=== PATIENT | male | born 1985 | race Two or more races ===

== ENCOUNTER 2020-08-06 14:01 | Outpatient (REF) | payer MEDICAID, SELFPAY ==
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
== END 2020-08-06 14:02 | disposition home or self-care (01) ==
LOC: HO.XRAY 14:01
PROVIDERS: PCP Internal Medicine Geriatric Medicine; Visit Provider Internal Medicine Geriatric Medicine
DX: M25.561 Pain in right knee (principal); M54.5 Low back pain
CPT/HCPCS: 72110; 73564

== ENCOUNTER 2021-09-17 21:10 | Emergency (ER) | payer OTHER, SELFPAY ==
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
[2021-09-17 21:27] VITALS: BP 110/72; BP 110/78; PULSE 72; PULSE 76; RESP 18; TEMP 36.7; O2SAT 98; BMI 23.8
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
[2021-09-18] MEDS: Cyclobenzaprine HCl 5 MG TABLET PO (00:39)
== END 2021-09-18 00:44 | disposition home or self-care (01) ==
PROVIDERS: Emergency Provider Internal Medicine; PCP Internal Medicine Geriatric Medicine
DX: M54.2 Cervicalgia (principal); M25.562 Pain in left knee; M25.522 Pain in left elbow; S20.212A Contusion of left front wall of thorax, initial encounter; V43.52XA Car driver injured in collision with other type car in traffic accident, initial encounter; R20.2 Paresthesia of skin; Y93.89 Activity, other specified; Y92.414 Local residential or business street as the place of occurrence of the external cause; Y99.9 Unspecified external cause status
CPT/HCPCS: 70450; 71101; 72125; 73502; 73560; 99283; 99284

== ENCOUNTER 2022-03-15 17:26 | Emergency (ER) | payer MEDICAID, SELFPAY ==
[2022-03-15 17:32] VITALS: BP 121/60; PULSE 82; RESP 18; TEMP 37; O2SAT 81; BMI 26.2
--- OUTSIDE RECORDS SUMMARY | 2022-03-15 18:30 | XMS_ITS | Continuity of Care Document ---
:1985 Author Organization [facility] Address [address] [place] [id number]- Care Team Providers Name Role Phone Name Romulo GRIGGS Primary Care Physician Encounter [facility] [place] Date(s): 05/09/20 - 05/09/[address] [address]- Discharge Disposition: A-D/C Home Attending Physician: Jered GRIGGS, Trudy Weiss Admitting Physician: Jered GRIGGS, Trudy Weiss Referring Physician: Not on Staff, Referring MD Allergies, Adverse Reactions, Alerts No Known Medication Allergies Medications albuterol 90 mcg/inh inhalation powder 1 puffs, Inhalation, Every 4 hours, PRN as needed, # 1 each, 3 Refills, Maintenance, 05/09/20 15:58:00 EST, Powder, [id number], Partial fill upon patient request if the prescription is for a schedule II opioid drug., 1 puffs Inhalation Every 4... Start Date: 05/09/20 Status: Ordered Vital Signs Most recent to oldest [Reference Range]: 1 2 Oxygen Saturation [94-100 %] 97 % 100 % (05/09/20 2:17 PM) (05/09/20 1:42 PM) Pulse Rate [55-90 bpm] 94 bpm 98 bpm *H* *H* (05/09/20 2:17 PM) (05/09/20 1:42 PM) Blood Pressure [90-138/55-84 mm Hg] 128/98 mm Hg (05/09/20 2:17 PM) Respiratory Rate [16-30 br/min] 19 br/min (05/09/20 2:17 PM) Temperature [96.8-100.4 DegF] 98.3 DegF (05/09/20 2:17 PM) Mode of Delivery (Oxygen) Room air (05/09/20 2:17 PM) Blood pressure sites Arm, right (05/09/20 2:17 PM) Temperature Route Oral (05/09/20 2:17 PM)
--- OUTSIDE RECORDS SUMMARY | 2022-03-15 18:30 | XMS_ITS | Continuity of Care Document ---
:1985 Author Organization [facility] Address [address] [place] [address]- Care Team Providers Name Role Phone Name Romulo GRIGGS Primary Care Physician Encounter [facility] [place] [id number] Date(s): 05/11/20 - 05/13/[address] [id number] Discharge Disposition: A-D/C Home Attending Physician: China Gandhi MD Admitting Physician: Jose Luis Layne MD Referring Physician: Not on Staff, Referring MD [...] Inhalation Every 4... Start Date: 05/09/20 Status: Orderednaproxen 500 mg oral tablet 1 tablet = 500 mg, By Mouth, 2 times a day, # 60 tablet, 0 Refills, Acute 06/10/20 11:20:00 EST, 05/13/20 11:20:00 EST, Tablet, [id number], Partial fill upon patient request if the prescriptionis for a schedule II opioid drug., 170, cm, 05/13... Start Date: 05/13/20 Stop Date: 06/10/20 Status: OrderedNicotine 2 mg gum = 2 mg, Chew, Every hour, PRN Other, Nicotine Cravings, # 30 each, 1 Refills, Acute 06/10/20 11:20:00 EST, 05/13/20 11:20:00 EST, Gum, [id number], Partial fill upon patient request if the prescription is for a schedule II opioid drug., 170, cm... Start Date: 05/13/20 Stop Date: 06/10/20 Status: Ordered Results Radiology Reports Exam Date Time Procedure Performing Provider Status 05/12/20 3:05 AM Chest 2 Views Frontal and Lat Aydee AburtoKanwal Bliss [facility] (Verified) Notes:(Chest 2 Views Frontal and Lat) Reason For Exam: Chest Pain;Other:RESULT: Chest 2 Views Frontal and Lat Chest 2 Views Frontal and Lat Hx of Present Illness: pt c o 2 days of intermittent chest pain that is sharp and reproducible as well as shortness of breath that is worse out in the cold. pt states it feels similar to a previous occurence of bronchitis.; Reason: Other:; Chest Pain; Clinical Question(s): Other: COMPARISON: None. FINDINGS: LINES AND TUBES: None. LUNGS AND PLEURA: Clear lungs. Normal pulmonary vascularity. No pleural effusion. No pneumothorax. HEART, MEDIASTINUM AND JOANN: Heart is normal in size. Normal upper mediastinal and hilar contour. BONES AND SOFT TISSUES: No acute abnormality. IMPRESSION: Negative. WSN: [id number] Ordering Physician: Julia Augustin Dictated By: Justus Price MD Dictated Date/Time: 05/12/20 9:00 am Reviewed By: Justus Price MD Signed By: Justus Price MD Signed Date/Time: 05/12/20 9:00 am Transcribed By: MEE Transcribed Date/Time: 05/12/20 8:59 am Vital Signs Most recent to oldest [Reference 1 2 3 Range]: Height 170 cm 170 cm (05/13/20 7:50 AM) (05/12/20 4:19 PM) Weight 69.5 kg (05/12/20 4:19 PM) Oxygen Saturation [94-100 %] 95 % 100 % 99 % (05/13/20 7:50 AM) (05/13/20 4:00 AM) (05/12/20 11:00 PM) Pulse Rate [55-90 bpm] 70 bpm 100 bpm 53 bpm (05/13/20 7:50 AM) *H* *L* (05/13/20 4:00 AM) (05/12/20 11:00 P M) Body Mass Index [18.5-24.99] 24.05 (05/12/20 4:19 PM) Blood Pressure [90-138/55-84 mm 109/59 mm Hg 101/47 mm Hg 114/68 mm Hg Hg] (05/13/20 7:50 AM) (05/13/20 4:00 AM) (05/12/20 11:00 PM) Respiratory Rate [16-30 br/min] 18 br/min 18 br/min 18 br/min (05/13/20 9:30 AM) (05/13/20 7:50 AM) (05/13/20 4:00 A M) Temperature [96.8-100.4 DegF] 97.5 DegF 97.9 DegF 97 .7 DegF (05/13/20 7:50 AM) (05/13/20 4:00 AM) (05/12/20 11:00 PM) Mode of Delivery (Oxygen) Room air Room air Room a ir (05/13/20 7:50 AM) (05/13/20 4:00 AM) (05/12/20 11:00 PM) Blood pressure sites Arm, left Arm, left Arm, left (05/13/20 7:50 AM) (05/13/20 4:00 AM) (05/12/20 11:00 PM) Temperature Route Oral Oral Oral (05/13/20 7:50 AM) (05/13/20 4:00 AM) (05/12/20 11:00 PM) Dry Weight 69.5 kg (05/12/20 4:19 PM)
--- OUTSIDE RECORDS SUMMARY | 2022-03-15 18:30 | XMS_ITS | Continuity of Care Document ---
:1985 Author Organization [facility] Address [address] [place] [id number]- Care Team Providers Name Role Phone Name Romulo GRIGGS Primary Care Physician [place] [facility] [place] - 08/19/[address] [address]- Discharge Disposition: A-D/C Home Attending Physician: Luli Anand MD Admitting Physician: Luli Anand MD Referring Physician: Not on Staff, Referring [...] Every 4... Start Date: 05/09/20 Status: Ordered Problem List Condition Effective Dates Status Health Status Informant Tobacco abuse(Confirmed) Active Results Radiology Reports Exam Date Time Procedure Performing Provider Status 08/19/20 8:41 PM Lumbar Spine 2 or 3 Views Kevin Herrera (Verified) Notes:(Lumbar Spine 2 or 3 Views) Reason For Exam: PainRESULT: Lumbar Spine 2 or 3 Views PROCEDURE: Lumbar Spine 2 or 3 Views CLINICAL INDICATION: 35 years old Male with Hx of Present Illness: lower back pain; Reason: Pain; Clinical Question(s): Fracture Dislocation. TECHNIQUE: AP, lateral and lateral spot views of the lumbar spine are obtained. COMPARISON: None. FINDINGS: Bones: Straightening of normal lumbar lordosis noted. Five lumbar type [id number] vertebrae arenoted. No evidence of fracture or dislocation. No evidence of spondylolisthesis. Minimal degenerative endplate changes anteriorly at L4-L5 and L5-S1. Soft Tissues: Moderate volume of fecal material in the colon. Left-sided pelvic fluids. IMPRESSION: 1. No evidence of acute bony injuries. 2. Straightening of normal lordosis which could be due to muscle spasm. 3. Moderate volume of fecal material in the colon which in the correct clinical setting could be evidence of constipation. Thank you for allowing me to participate in the care of this patient. WSN: [id number] Ordering Physician: Jody Li Dictated By: Madhu James MD Dictated Date/Time: 08/19/20 8:44 pm Reviewed By: Madhu James MD Signed By: Madhu James MD Signed Date/Time: 08/19/20 8:44 pm Transcribed By: MEE Transcribed Date/Time: 08/19/20 8:43 pm Vital Signs Most recent to oldest 1 2 3 [Reference Range]: Weight 69.8 kg 69.8 kg (08/19/20 9:33 PM) (08/19/20 12:44 PM) Oxygen Saturation [94-100 100 % 70 % 100 % %] (08/19/20 6:03 PM) *L* (08/19/20 12:42 PM) (08/19/20 12:44 PM) Pulse Rate [55-90 bpm] 62 bpm 69 bpm 92 bpm (08/19/20 6:03 PM) (08/19/20 12:44 PM) *H* (08/19/20 12:42 P M) Blood Pressure 115/69 mm Hg 137/65 mm Hg [90-138/55-84 mm Hg] (08/19/20 6:03 PM) (08/19/20 12:44 PM) Respiratory Rate [16-30 16 br/min 16 br/min br/min] (08/19/20 6:03 PM) (08/19/20 12:44 PM) Temperature [96.8-100.4 98.5 DegF 98.1 DegF DegF] (08/19/20 6:03 PM) (08/19/20 12:44 PM) Mode of Delivery (Oxygen) Room air 99 Room a ir (08/19/20 6:03 PM) (08/19/20 12:44 PM) (08/19/20 12 :42 PM) Blood pressure sites Arm, left Arm, left (08/19/20 6:03 PM) (08/19/20 12:44 PM) Temperature Route Oral Oral (08/19/20 6:03 PM) (08/19/20 12:44 PM) Dry Weight 69.8 kg 69.8 kg (08/19/20 9:33 PM) (08/19/20 12:44 PM) Weight Obtained Via Patient/family stated (08/19/20 12:44 PM) Dry Weight Obtained Via Patient/family stated (08/19/20 12:44 PM)
--- OUTSIDE RECORDS SUMMARY | 2022-03-15 18:30 | XMS_ITS | Continuity of Care Document ---
:1985 Author Organization [facility] Address [address] [place] [id number]- Care Team Providers Name Role Phone Name Romulo GRIGGS Primary Care Physician Encounter [facility] [place](s): 06/06/20 - 07/06/20 [facility] [address] [place] [id number] Attending Physician: Lambert Winston Admitting Physician: Lambert Winston Referring Physician: Admtr, Lambert Allergies, Adverse Reactions, Alerts No Known Medication [...]
--- OUTSIDE RECORDS SUMMARY | 2022-03-15 18:30 | XMS_ITS | Continuity of Care Document ---
:1985 Author Organization [facility] Address [address] [place] [id number]- Care Team Providers Name Role Phone Name Romulo GRIGGS Primary Care Physician Encounter [facility] Date(s): 07/09/20 - 08/08/20 [facility] [address] [place] [id number] Allergies, Adverse Reactions, Alerts No Known Medication [...]
--- OUTSIDE RECORDS SUMMARY | 2022-03-15 18:30 | XMS_ITS | Continuity of Care Document ---
:1985 Author Organization [facility] Address [address] [place] [id number]- Care Team Providers Name Role Phone Name Romulo GRIGGS Primary Care Physician [place] [facility] [place]s): 06/05/20 - 07/05/20 [facility] [address] [place] [id number] Allergies, Adverse Reactions, Alerts No Known Medication [...]
--- OUTSIDE RECORDS SUMMARY | 2022-03-15 18:30 | XMS_ITS | Continuity of Care Document ---
:1985 Author Organization [facility] Address [address] [place] [address]- Care Team Providers Name Role Phone Name Romulo GRIGGS Primary Care Physician [place] [facility] [place]29[place] - 11/29/[address] [address]- [facility] Discharge Disposition: A-D/C Home Attending Physician: Micaela Fischer MD Admitting Physician: Wagner Holliday MD, Micaela Referring Physician: Not on Staff, Referring MD Allergies, Adverse Reactions, Alerts No Known Medication Allergies Medications doxycycline hyclate 100 mg oral capsule 1 capsule = 100 mg, By Mouth, 2 times a day, for 10 days, # 20 capsule, 0 Refills, Acute 12/09/19 17:05:00 EDT, 11/29/19 17:05:00 EDT, Capsule Start Date: 11/29/19 Stop Date: 12/09/19 Status: Orderedibuprofen 600 mg oral tablet 600 mg, 1, tablet, By Mouth, 4 times a day, PRN, for 5 days, # 20 tablet, Refills 0, Tot. Refills 0,Acute 12/04/19 17:05:00 EDT, for pain, 11/29/19 17:05:00 EDT, Print Requisition Start Date: 11/29/19 Stop Date: 12/04/19 Status: Ordered Vital Signs Most recent to oldest 1 2 3 [Reference Range]: Oxygen Saturation [94-100 %] 100 % 100 % (11/29/19 4:35 PM) (11/29/19 11:36 AM) Pulse Rate [55-90 bpm] 86 bpm 99 bpm (11/29/19 4:35 PM) *H* (11/29/19 11:36 AM) Blood Pressure [90-138/55-84 112/78 mm Hg 125/69 mm Hg mm Hg] (11/29/19 4:35 PM) (11/29/19 11:36 AM) Respiratory Rate [16-30 18 br/min 16 br/min 18 br/mi n br/min] (11/29/19 4:35 PM) (11/29/19 2:47 PM) (11/29/19 11: 36 AM) Temperature [96.8-100.4 98.6 DegF DegF] (11/29/19 11:36 AM) Mode of Delivery (Oxygen) Room air Room air (11/29/19 4:35 PM) (11/29/19 11:36 AM) Temperature Route Oral (11/29/19 11:36 AM)
--- OUTSIDE RECORDS SUMMARY | 2022-03-15 18:30 | XMS_ITS | Continuity of Care Document ---
:1985 Author Organization [facility] Address [address] [place] [id number]- Care Team Providers Name Role Phone Name Romulo GRIGGS Primary Care Physician Encounter [facility] Date(s): 07/09/20 - 08/08/20 [facility] [address] [place] [id number] Allergies, Adverse Reactions, Alerts No Known [...]
--- NOTE | 2022-03-15 18:33 | ED.GENADULT ---
HPI - General Adult General Stated complaint: tooth pain Source: patient, family, RN notes reviewed and old records reviewed Mode of arrival: ambulatory Limitations: no limitations History of Present Illness HPI narrative: 36-year-old male is here today for evaluation of his tooth. Patient was eating about 40 minutes ago and felt like his filling came out. Patient's girlfriend took a picture of it small amalgam filling came out of molar 2. There is no swelling. Patient has some discomfort. Patient admits to multiple dental caries. Has not seen a dentist for some time. He reports that the rest of the tooth is intact. Onset (ago): minute(s) (40 minutes) Location: mouth Related Data Previous Rx's Medication Instructions Recorded cyclobenzaprine 5 mg tablet 5 mg PO Q8H PRN pain (scale score 09/18/21 7-10) 5 days #14 tabs lidocaine 5 % topical patch 1 patch topical DAILY PRN pain #30 09/18/21 (Lidoderm) ea naproxen 500 mg tablet 500 mg PO BID PRN pain 10 days #20 09/18/21 tabs ibuprofen 600 mg tablet 600 mg PO Q8H PRN pain #20 tabs 03/15/22 Allergies Allergy/AdvReac Type Severity Reaction Status Date / Time acetaminophen [From TYLENOL] Allergy Intermediate LIVER Verified 09/17/21 21:27 SWELLING Review of Systems Review of Systems: Constitutional : No Weight loss, No Fever, No Chills, No Night Sweats, No Fatigue, No Malaise ENT/Mouth : No Hearing loss, No Ear Pain, No Nasal Congestion, No Sinus Pain, No Hoarseness, No sore throat, No Rhinorrhea, No Swallowing Difficulty, toothache Eyes: No Eye Pain, No Swelling, No Redness, No Foreign Body, No Discharge, No Vision Changes Respiratory : No Cough, No Sputum, No Wheezing, No Smoke Exposure, No Dyspnea Musculoskeletal : No joint pain, No Myalgias, No Joint Swelling Skin : No Skin Lesions, No rash Neuro : No Weakness, No Numbness, No Paresthesias, No Loss of Consciousness, No Dizziness, No Headache Yes all other systems are reviewed and are negative PMFSH Social History Social History Advance Directives: No Advance Directives Information Provided: No Physical Exam ED Vital Signs: Vital Signs - 24 hr 03/15/22 17:32 Temperature 98.6 F Pulse Rate 82 Respiratory Rate 18 Blood Pressure 121/60 Pulse Oximetry 81 L Oxygen Delivery Method Room Air BMI result Body Mass Index 26.2 Const General: cooperative, healthy appearing, comfortable, well developed, alert and awake Nutritional Appearance: average body habitus and well nourished Orientation/consciousness: patient oriented x3 HENMT Head: Yes normal to inspection, Yes normocephalic and Yes atraumatic Ears: hearing grossly normal bilaterally, external ears normal and TM's normal bilaterally General nose exam: Normal external nose present Face and sinus: Yes normal facial exam and Yes sinuses nontender Mouth: Normal oral and palatal mucosa present and tongue normal Teeth and gingiva: caries and poor dentition Teeth image: 1. lost filling Throat: Yes posterior oropharynx normal, Yes tonsils normal and Yes uvula midline Neck Neck: Yes normal visual inspection, Yes full ROM, Yes no lymphadenopathy and Yes trachea midline Resp Effort & Inspection: normal respiratory effort Auscultation: clear to auscultation bilaterally Skin General skin exam: no rashes or lesions noted, elasticity normal and turgor normal Neuro General: patient oriented x3 Psych Appearance: grossly normal and well kempt Mental Status: mental status grossly normal Speech and movement: Normal speech and movement present Course Course Course Narrative: 36-year-old male is here today for evaluation of his tooth. Patient was eating about 40 minutes ago and felt like his filling came out. Patient's girlfriend took a picture of it small piece of amalgam filling came out of molar 2. There is no swelling. Patient has some discomfort. Patient admits to multiple dental caries. Has not seen a dentist for some time. He reports that the rest of the tooth is intact. There is no swelling or redness. Gums pink otherwise. Patient will be sent to follow-up with his dentist. We will be giving script for Tylenol and ibuprofen. Patient was encouraged to rinse his mouth with warm water and salt. Discharge Plan Discharge Clinical Impression: Toothache, Dental caries Patient Disposition: Home, Self-Care Instructions: Toothache (ED) Additional Instructions: You were seen here today for dental pain. Your filling came out, make sure you follow-up with dentist at [facility] [phone]. You will be given script for ibuprofen and Tylenol. Make sure that you will rinse your mouth with warm water and salt. Prescriptions: New ibuprofen 600 mg tablet 600 mg PO Q8H PRN (Reason: pain) Qty: 20 0RF No Action lidocaine [Lidoderm] 5 % adhesive patch,medicated 1 patch topical DAILY MDD remove after 12 hours PRN (Reason: pain) Qty: 30 0RF Rx Instructions: leave on most painful area for up to 12 hrs naproxen 500 mg tablet 500 mg PO BID PRN (Reason: pain) 10 Days Qty: 20 0RF cyclobenzaprine 5 mg tablet 5 mg PO Q8H PRN (Reason: pain (scale score 7-10)) 5 Days Qty: 14 0RF Interventions: ED Discharge Assessment Last Done: 03/15/22 18:57 Discharge Date/Time: 03/15/22 18:58
== END 2022-03-15 18:58 | disposition home or self-care (01) ==
PROVIDERS: Emergency Provider Emergency Medicine Emergency Medical Services; PCP Internal Medicine Geriatric Medicine
DX: K08.89 Other specified disorders of teeth and supporting structures (principal); K02.9 Dental caries, unspecified
CPT/HCPCS: 99282; 99283

== ENCOUNTER 2022-09-01 01:11 | Emergency (ER) | payer MEDICAID, SELFPAY ==
--- NOTE | ~2022-09-01 | XR_ITS ---
EXAMINATION: XR ABDOMEN KUB CLINICAL INDICATION: Mid abdominal pain COMPARISON: None available. TECHNIQUE: AP view of the abdomen. FINDINGS: The bowel gas pattern is normal with no evidence of ileus or obstruction. No unusual soft tissue calcifications are noted. The bones are unremarkable. XR/XR KUB IMPRESSION: Unremarkable examination.
--- NOTE | ~2022-09-01 | CT_ITS ---
EXAMINATION: CT ABDOMEN AND PELVIS WITHOUT CONTRAST CLINICAL INFORMATION: Right lower quadrant pain COMPARISON: None available. TECHNIQUE: Multidetector volumetric imaging was performed from the superior aspect of the liver through the pubic symphysis. Sagittal and coronal reformatted images were obtained on the technologist's workstation. This CT examination was performed using dose optimization techniques as appropriate, variously including the following: *Automated exposure control *Adjustment of mA and/or kV according to patient size (this includes techniques or standardized protocols for targeted exams where dose is matched to indication/reason for exam; i.e. extremities or head) *Use of iterative reconstruction technique DLP: 434 mGy-cm FINDINGS: LUNG BASES: The visualized lung bases are unremarkable. LIVER, GALLBLADDER, AND BILIARY TREE: The liver is normal in size, shape, and attenuation. No focal hepatic lesion or biliary ductal dilatation is present. The gallbladder is unremarkable with no evidence of radiopaque gallstones, gallbladder wall thickening, or obvious pericholecystic inflammatory changes. PANCREAS: Unremarkable. SPLEEN: Unremarkable. ADRENAL GLANDS: Unremarkable. KIDNEYS AND URETERS: The kidneys are normal in size, shape, and attenuation. No hydronephrosis, hydroureter, or calculi seen. No perinephric stranding. BLADDER: Unremarkable. GASTROINTESTINAL TRACT: The small and large bowel are unremarkable. The appendix is not seen, however there are no inflammatory changes about the cecum to suggest appendicitis.. ABDOMINAL WALL: No significant hernia is appreciated. LYMPH NODES: Normal. VASCULAR: Unremarkable. PELVIC VISCERA: Unremarkable. OSSEOUS STRUCTURES: Unremarkable. CT/CT abdomen pelvis wo IV con IMPRESSION: No acute findings within the abdomen or pelvis to explain the patient's symptomatology.
[2022-09-01 02:04] VITALS: BP 131/76; PULSE 58; RESP 18; TEMP 36.6; O2SAT 98; BMI 24.5
[2022-09-01 03:15] VITALS: BP 99/58; PULSE 45; RESP 14; TEMP 36.4; O2SAT 98
[2022-09-01 03:20] LABS: Basophils Absolute Auto 0.1 X10*3/uL (0.0-0.2); Basophils Percent Auto 0.8 % (0-2); Eosinophils Absolute Auto 0.2 X10*3/uL (0.0-0.4); Eosinophils Percent Auto 2.4 % (0-4); Hematocrit 44.5 % (42.0-52.0); Hemoglobin 15.2 g/dl (14.0-18.0); Imm Gran Abs Auto 0.02 X10*3/uL (0.00-0.03); Imm Gran Pct Auto 0.2 % (0.0-0.4); Lymphocytes Absolute Auto 3.4 X10*3/uL (1.2-4.9); MANUAL DIFF FLAG NO; Mean Corpuscular HGB Conc 34.2 g/dl (31.0-36.0); Mean Corpuscular Hemoglobin 29.7 pg (27.0-33.0); Mean Corpuscular Volume 86.9 fL (80.0-98.0); Mean Platelet Volume 9.9 fL (9.4-12.4); Monocytes Absolute Auto 0.8 X10*3/uL (0.1-1.2); Monocytes Percent Auto 9.8 % (2-11); Neutrophils Absolute Auto 3.8 x10*3/uL (2.0-8.3); Neutrophils Percent Auto 45.8 % (45-73); Platelet Count 248 X10*3/uL (160-400); Red Blood Count 5.12 X10*6/uL (4.60-5.80); White Blood Count 8.4 X10*3/uL (4.8-10.8)
[2022-09-01 03:25] LABS: INTERNATIONAL NORM RATIO 1.1 (0.9-1.1); Prothrombin Time 12.4 SEC (10.0-13.1)
--- NOTE | 2022-09-01 03:25 | ED.GENADULT ---
[facility] - General Adult General Chief complaint: Weakness Stated complaint: mouth & stomach pain, dry mouth Time Seen by Provider: 09/01/22 02:39 Source: patient Mode of arrival: ambulatory History of Present Illness HPI narrative: This is a 37-year-old male who presents after spending 2 weeks in [place] and states that they were go carting and that he got mild in his mouth and since that time he feels unwell but denies any fevers or chills, but states he has had a decrease in appetite and describes periumbilical discomfort but denies any nausea, vomiting, diarrhea. Related Data Previous Rx's Medication Instructions Recorded cyclobenzaprine 5 mg tablet 5 mg PO Q8H PRN pain (scale score 09/18/21 7-10) 5 days #14 tabs lidocaine 5 % topical patch 1 patch topical DAILY PRN pain #30 09/18/21 (Lidoderm) ea naproxen 500 mg tablet 500 mg PO BID PRN pain 10 days #20 09/18/21 tabs ibuprofen 600 mg tablet 600 mg PO Q8H PRN pain #20 tabs 03/15/22 Allergies Allergy/AdvReac Type Severity Reaction Status Date / Time acetaminophen [From TYLENOL] Allergy Intermediate LIVER Verified 09/01/22 02:04 SWELLING Review of Systems Review of Systems: Pertinent positives and negatives as stated in HPI [facility] Past Medical History Source: nursing notes reviewed Social History Social History Advance Directives: No Advance Directives Information Provided: No Physical Exam ED Vital Signs: Vital Signs - 24 hr 09/01/22 02:04 09/01/22 03:15 Temperature 97.8 F 97.6 F Pulse Rate 58 45 L Respiratory Rate 18 14 Blood Pressure 131/76 99/58 L Pulse Oximetry 98 98 Oxygen Delivery Method Room Air Room Air BMI result Body Mass Index 24.5 VITAL SIGNS: Reviewed. GENERAL: Well developed, well nourished, in no acute distress. HEAD: Normocephalic/atraumatic EYES: PERRLA, EOMI EARS: Ext canals without abnormality NOSE: Nares patent bilateral OROPHARYNX: no oral lesions noted, posterior pharynx clear NECK: Supple, no adenopathy LUNGS: Normal breath sounds. No adventitious sounds or accessory muscle use. SpO2<98> CARDIOVASCULAR: Regular rate and rhythm without noted murmurs ABDOMEN: Soft, mild periumbilical pain, non-distended with bowel sounds. MUSCULOSKELETAL: No tenderness, deformities, or effusions noted on gross inspection. EXTREMITIES: No cyanosis, clubbing or edema. SKIN: Inspection of the skin reveals no rashes NEUROLOGIC: Alert and oriented x 4. Strength and sensation to light touch were grossly intact x 4. Medications Administered Discontinued Medications Generic Name Dose Route Start Last Admin Trade Name Freq PRN Reason Stop Dose Admin Ketorolac Tromethamine 15 mg 09/01/22 05:25 09/01/22 05:41 Ketorolac Tromethamine 15 Mg/Ml Vial IM 09/01/22 05:26 15 mg ONCE ONE Administration Medical Decision Making Medical Decision Making [facility] Narrative: 37-year-old male with history and clinical presentation suggestive of a mild gastroenteritis, patient otherwise appears well. Review of all investigations otherwise negative for acute findings. Patient will be treated empirically for mild gastroenteritis and discharged home in stable condition. Differential Diagnosis Please see the discussion above Lab Data Please see the discussion above 09/01/22 03:11 09/01/22 03:11 Labs: Lab Results 09/01/22 09/01/22 09/01/22 Range/Units 03:11 03:11 03:11 WBC 8.4 (4.8-10.8) X10*3/uL RBC 5.12 (4.60-5.80) X10*6/uL Hgb 15.2 (14.0-18.0) g/dl Hct 44.5 (42.0-52.0) % MCV 86.9 (80.0-98.0) fL MCH 29.7 (27.0-33.0) pg MCHC 34.2 (31.0-36.0) g/dl RDW 12.0 (11.0-16.0) % Plt Count 248 (160-400) X10*3/uL MPV 9.9 (9.4-12.4) fL Immature Gran % (Auto) 0.2 (0.0-0.4) % Neut % (Auto) 45.8 (45-73) % Lymph % (Auto) 41.0 H (20-40) % [place] % (Auto) 9.8 (2-11) % Eos % (Auto) 2.4 (0-4) % Baso % (Auto) 0.8 (0-2) % Lymph # (Auto) 3.4 (1.2-4.9) X10*3/uL [place] # (Auto) 0.8 (0.1-1.2) X10*3/uL Eos # (Auto) 0.2 (0.0-0.4) X10*3/uL Baso # (Auto) 0.1 (0.0-0.2) X10*3/uL Abs Immat Gran (auto) 0.02 (0.00-0.03) X10*3/uL Absolute Neuts (auto) 3.8 (2.0-8.3) x10*3/uL Absolute Nucleated RBC 0.000 (0.0-0.012) X10*3/uL Nucleated RBC % (auto) 0.0 (0.0-0.2) /100WBC PT 12.4 (10.0-13.1) SEC INR 1.1 (0.9-1.1) Sodium 141 (135-145) mmol/L Potassium 3.6 (3.3-5.1) mmol/L Chloride 108 (96-108) mmol/L Carbon Dioxide 24 (22-29) mmol/L Anion Gap 13 (12-20) BUN 18 H (9-16) mg/dL Creatinine 1.01 (0.5-1.4) mg/dL Estim Creat Clear Calc 95.4 Estimated GFR > 60 Random Glucose 96 (60-115) mg/dL Calcium 9.6 (8.4-10.2) mg/dL Total Bilirubin 1.1 H (0.0-1.0) mg/dL AST 18 (5-37) U/L ALT 10 (0-40) U/L Alkaline Phosphatase 99 (39-117) U/L Total Protein 7.2 (6.5-8.0) g/dL Albumin 4.5 (3.5-5.0) g/dL Radiology Impression Radiologist Impression: My interpretation is in agreement with radiology's impression Discharge Plan Discharge Clinical Impression: Gastroenteritis Patient Disposition: Home, Self-Care Instructions: Gastroenteritis (ED) Additional Instructions: 1. Recommend [id number] Tylenol/ibuprofen as needed for pain control. Continue with a bland diet which means no spicy or greasy foods the next 5-7 days. Gradually increase your diet from there. 2. Follow-up with your primary care provider on Thursday morning. Return to the ER for any worsening symptoms. Prescriptions: No Action lidocaine [Lidoderm] 5 % adhesive patch,medicated 1 patch topical DAILY MDD remove after 12 hours PRN (Reason: pain) Qty: 30 0RF Rx Instructions: leave on most painful area for up to 12 hrs naproxen 500 mg tablet 500 mg PO BID PRN (Reason: pain) 10 Days Qty: 20 0RF cyclobenzaprine 5 mg tablet 5 mg PO Q8H PRN (Reason: pain (scale score 7-10)) 5 Days Qty: 14 0RF ibuprofen 600 mg tablet 600 mg PO Q8H PRN (Reason: pain) Qty: 20 0RF Referrals: Name,MD Romulo [Primary Care Provider] -
[2022-09-01 03:39] LABS: Alanine Aminotransferase 10 U/L (0-40); Albumin Level 4.5 g/dL (3.5-5.0); Alkaline Phosphatase 99 U/L (39-117); Anion Gap 13 (12-20); Aspartate Amino Transferase 18 U/L (5-37); Bilirubin Total 1.1 mg/dL (0.0-1.0); Blood Urea Nitrogen 18 mg/dL (9-16); Calcium 9.6 mg/dL (8.4-10.2); Carbon Dioxide 24 mmol/L (22-29); Chloride 108 mmol/L (96-108); Creatinine Clr Calc Pharmacy 95.4; Estimated Glomerular Filt Rate > 60; Glucose Random 96 mg/dL (60-115); Potassium 3.6 mmol/L (3.3-5.1); Sodium 141 mmol/L (135-145); Total Protein 7.2 g/dL (6.5-8.0)
[2022-09-01] MEDS: Ketorolac Tromethamine 15 MG/ML VIAL IM (05:41)
== END 2022-09-01 06:39 | disposition home or self-care (01) ==
PROVIDERS: Emergency Provider Student in an Organized Health Care Education/Training Program; PCP Internal Medicine Geriatric Medicine
DX: K52.9 Noninfective gastroenteritis and colitis, unspecified (principal); R10.2 Pelvic and perineal pain; Z79.899 Other long term (current) drug therapy
CPT/HCPCS: 36415; 74018; 74176; 80053; 85025; 85610; 96372; 99284; J1885

== ENCOUNTER 2022-12-08 12:58 | Emergency (ER) | payer MEDICAID, SELFPAY ==
--- NOTE | 2022-12-08 13:04 | ED.GENADULT ---
HPI - General Adult General Chief complaint: Urogenital-Male Stated complaint: will explain to doctor Time Seen by Provider: 12/08/22 15:05 Source: patient and RN notes reviewed Mode of arrival: ambulatory Limitations: no limitations History of Present Illness HPI narrative: This is a 37-year-old male presenting to the emergency department with complaints of penile itching after intercourse today. Patient states that his just started vitamins and has had increased vaginal itching. Patient reports that the also has had vaginal dryness over this past week. Patient reports that while he was having intercourse, his was complaining of some pain and vaginal dryness. After penetration, he did have some itching to the tip of his penis. Patient denies any hematuria, urinary urgency or frequency. Denies any penile discharge. Denies any penile lesions. No other complaints or concerns at this time. MD complaint: Penile itching Onset (ago): day(s) Quality: burning Pain Consistency: constant Relieving factors: none Exacerbating factors: none Associated symptoms: denies other symptoms Treatments prior to arrival: none Related Data Previous Rx's Medication Instructions Recorded cyclobenzaprine 5 mg tablet 5 mg PO Q8H PRN pain (scale score 09/18/21 7-10) 5 days #14 tabs lidocaine 5 % topical patch 1 patch topical DAILY PRN pain #30 09/18/21 (Lidoderm) ea naproxen 500 mg tablet 500 mg PO BID PRN pain 10 days #20 09/18/21 tabs ibuprofen 600 mg tablet 600 mg PO Q8H PRN pain #20 tabs 03/15/22 Allergies Allergy/AdvReac Type Severity Reaction Status Date / Time acetaminophen [From TYLENOL] Allergy Intermediate LIVER Verified 12/08/22 13:08 SWELLING Review of Systems Review of Systems: Yes all other systems are reviewed and are negative [facility] Social History Social History Advance Directives: No Advance Directives Information Provided: No Physical Exam ED Vital Signs: Vital Signs - 24 hr 12/08/22 13:05 Temperature 98.9 F Pulse Rate 75 Respiratory Rate 18 Blood Pressure 125/78 Pulse Oximetry 99 Oxygen Delivery Method Room Air BMI result Body Mass Index 23.6 Const Other: General: Awake, alert, and oriented X3. No acute distress. HEENT: Normal inspection CVS: Normal heart rate and rhythm. Pulses normal. Respiratory: No respiratory distress Skin: Warm, dry, no rashes noted to exposed skin. Normal skin color. Normal skin turgor. : examination performed with technical training coordinator (Catina Bucio RN present at all times) Uncircumsized male genitalia, with no surrounding erythema, edema, or drainage from the urethral drainage. Nontender. Extremities: Normal to inspection Neuro: Oriented X 3. No motor deficit. No sensory deficit. Course Course Course Narrative: This is a rapid medical exam: Additional HPI, ROS, PE not included below will be deferred to primary provider. Patient is a 37-year-old male presenting to the emergency department with complaint of penile itching which began today after sexual intercourse. has had vaginal dryness and itching. He denies any penile discharge or dysuria. Plan: CT NG urine, UA Medical Decision Making Medical Decision Making [facility] Narrative: 37-year-old male presenting to the emergency department with complaints of penile itching after having intercourse with his today. On arrival, all vital signs within normal limits. examination was performed with technical training coordinator present, male genitalia without any abnormal findings. Urine was collected, no evidence of infection, chlamydia and gonorrhea testing without any detected. Patient's symptoms likely due to friction given to partners vaginal dryness. Advised to watch signs and symptoms over the next several days. Patient does not need to be placed on any antibiotics at this time. Patient understands and agrees with plan. Patient stable for discharge. Differential Diagnosis Differential Diagnoses: The differential diagnosis associated with the presentation includes Balanitis, urethritis, GC, chlamydia, paraphimosis, phimosis Lab Data [facility] Lab Attestation statement: I reviewed the patient's lab results. Labs: Lab Results 12/08/22 12/08/22 Range/Units 14:15 14:15 Urine Color Yellow Urine Appearance Clear Urine pH 7.0 (5.0-9.0) Ur Specific [place] 1.020 (1.005-1.025) Urine Protein Negative (Neg-Trace) mg/dL Urine Glucose (UA) Negative (Negative) mg/dL Urine Ketones Negative (Negative) mg/dL Urine Blood Negative (Negative) Urine Nitrite Negative (Negative) Ur Leukocyte Esterase Negative (Negative) Chlam trachomat DNA PCR NOT DETECTED (Not Detect.) N.gonorrhoeae DNA (PCR) NOT DETECTED (Not Detect.) Discharge Plan Discharge Clinical Impression: Dermatitis Patient Disposition: Home, Self-Care Instructions: Dermatitis (ED) Additional Instructions: Your symptoms are likely due to friction. Your symptoms will resolve on its own. Your urine did not show any signs of infection. You tested negative for gonorrhea and chlamydia. If any new or worsening symptoms occur, please return for re-evaluation. Follow-up with your primary care physician regarding this visit. Prescriptions: No Action lidocaine [Lidoderm] 5 % adhesive patch,medicated 1 patch topical DAILY MDD remove after 12 hours PRN (Reason: pain) Qty: 30 0RF Rx Instructions: leave on most painful area for up to 12 hrs naproxen 500 mg tablet 500 mg PO BID PRN (Reason: pain) 10 Days Qty: 20 0RF cyclobenzaprine 5 mg tablet 5 mg PO Q8H PRN (Reason: pain (scale score 7-10)) 5 Days Qty: 14 0RF ibuprofen 600 mg tablet 600 mg PO Q8H PRN (Reason: pain) Qty: 20 0RF Interventions: ED Discharge Assessment Last Done: 12/08/22 16:27 Discharge Date/Time: 12/08/22 16:27
[2022-12-08 13:05] VITALS: BP 125/78; PULSE 75; RESP 18; TEMP 37.2; O2SAT 99; BMI 23.6
[2022-12-08 14:23] LABS: Appearance Urine Clear; Color Urine Yellow; Glucose Urine UA Negative (Negative); Leukocyte Esterase Urine Negative (Negative); Nitrite Urine Negative (Negative); Urine Blood Negative (Negative); Urine Ketones Negative (Negative); Urine Protein Negative (Neg-Trace)
[2022-12-08 15:53] LABS: CT PCR NOT DETECTED (Not Detect.); NG PCR NOT DETECTED (Not Detect.)
== END 2022-12-08 16:27 | disposition home or self-care (01) ==
PROVIDERS: Registered Nurse Emergency; Emergency Provider Emergency Medicine; PCP Internal Medicine Geriatric Medicine
DX: B35.6 Tinea cruris (principal); L30.9 Dermatitis, unspecified; Z79.899 Other long term (current) drug therapy
CPT/HCPCS: 0353U; 81003; 99282; 99283

== ENCOUNTER 2023-01-25 20:38 | Emergency (ER) | payer SELFPAY ==
[2023-01-25 21:07] VITALS: BP 120/70; PULSE 84; RESP 16; TEMP 36.6; O2SAT 96; BMI 24.1
[2023-01-25 21:46] LABS: IDNOW Serial# BCCEAD1C; Strep A Nucleic Acid Negative (Negative)
--- NOTE | 2023-01-25 23:42 | ED.GENADULT ---
HPI - General Adult General Chief complaint: General Medical Stated complaint: sore and swollen throat ? Time Seen by Provider: 01/25/23 23:35 Source: patient, RN notes reviewed and old records reviewed Mode of arrival: ambulatory Limitations: no limitations History of Present Illness HPI narrative: 37-year-old male presents for evaluation of a swollen gland to the right side of his neck. He reports that his symptoms started 2 days ago. Him has been using salt water gargles with no improvement in his symptoms. He complains of a mild sore throat and that it hurts to swallow. He denies any ear pain, fevers, chills, cough, shortness of breath Denies any sick contact No other complaints or concerns at this time Related Data Previous Rx's Medication Instructions Recorded cyclobenzaprine 5 mg tablet 5 mg PO Q8H PRN pain (scale score 09/18/21 7-10) 5 days #14 tabs lidocaine 5 % topical patch 1 patch topical DAILY PRN pain #30 09/18/21 (Lidoderm) ea naproxen 500 mg tablet 500 mg PO BID PRN pain 10 days #20 09/18/21 tabs ibuprofen 600 mg tablet 600 mg PO Q8H PRN pain #20 tabs 03/15/22 Allergies Allergy/AdvReac Type Severity Reaction Status Date / Time acetaminophen [From TYLENOL] Allergy Intermediate LIVER Verified 12/08/22 13:08 SWELLING Review of Systems Constitutional: Constitutional: Denies chills, Denies fever(s) and Denies weakness Eyes: Eyes: Denies blurry vision ENT: Reports sore throat Cardiovascular: Cardiovascular: Denies chest pain and Denies dyspnea Respiratory: Respiratory: Denies cough and Denies dyspnea Gastrointestinal: Gastrointestinal: Denies abdominal pain, Denies nausea and Denies vomiting Musculoskeletal: Musculoskeletal: Denies back pain and Denies tingling Integumentary/Breasts: Skin/Breast: Denies rash Neurologic: Denies tingling and Denies weakness Psychiatric: Psychiatric: Denies anxiety [facility] Social History Social History Advance Directives: No Advance Directives Information Provided: No Physical Exam ED Vital Signs: Vital Signs - 24 hr 01/25/23 21:07 Temperature 97.9 F Pulse Rate 84 Respiratory Rate 16 Blood Pressure 120/70 Pulse Oximetry 96 Oxygen Delivery Method Room Air BMI result Body Mass Index 24.1 Const General: healthy appearing, comfortable, no acute distress, alert and awake Nutritional Appearance: well nourished Orientation/consciousness: patient oriented x3 HENMT Head: Yes normocephalic and Yes atraumatic Ears: external ears normal, TM's normal bilaterally and EAC's normal Throat: Yes posterior oropharynx abnormal (Mild retropharyngeal erythema without exudates or edema) Eyes Eyelids: Yes eyelids normal Conjunctivae: conjunctivae normal Sclerae: sclerae normal Corneas: corneas normal Pupils: Equal, round and reactive pupils present EOM: EOMs intact bilaterally Neck Other: Right-sided very cervical lymphadenopathy Neck: Yes full ROM Resp Effort & Inspection: normal respiratory effort, able to speak in complete sentences, no audible wheezes and not labored Auscultation: clear to auscultation bilaterally Skin General skin exam: no rashes or lesions noted and elasticity normal Neuro General: patient oriented x3 Cranial nerves: Yes Equal, round and reactive pupils present and Yes Bilaterally intact EOM present Cognition (Neuro): normal cognition Extrem Other: Moving all extremities well without any obvious deformities Medical Decision Making Medical Decision Making MDM Narrative: 37-year-old male presents for evaluation of a swollen gland on the right side of his neck. He has right-sided anterior cervical lymphadenopathy. He is negative for strep. Likely viral etiology. Discussed with patient will be given symptomatic care only Differential Diagnosis Differential Diagnoses: The differential diagnosis associated with the presentation includes Lymphadenopathy Pharyngitis Strep pharyngitis COVID-19 Otitis media Otitis externa Lab Data Labs: Lab Results 01/25/23 Range/Units 21:24 S. pyogenes GrpA SYLVESTER Negative (Negative) Discharge Plan Discharge Clinical Impression: Lymphadenopathy of right cervical region Patient Disposition: Home, Self-Care Instructions: Lymphadenopathy (ED) Additional Instructions: Lymphadenopathy is the medical term for swollen gland. You are negative for strep throat and therefore do not require antibiotics Use Motrin and Tylenol for pain. You may use hot compresses to the swollen area He may also use salt water gargles Your symptoms should resolve on their own within 1 week Return for new or worsening symptoms Prescriptions: No Action lidocaine [Lidoderm] 5 % adhesive patch,medicated 1 patch topical DAILY MDD remove after 12 hours PRN (Reason: pain) Qty: 30 0RF Rx Instructions: leave on most painful area for up to 12 hrs naproxen 500 mg tablet 500 mg PO BID PRN (Reason: pain) 10 Days Qty: 20 0RF cyclobenzaprine 5 mg tablet 5 mg PO Q8H PRN (Reason: pain (scale score 7-10)) 5 Days Qty: 14 0RF ibuprofen 600 mg tablet 600 mg PO Q8H PRN (Reason: pain) Qty: 20 0RF Stand Alone Forms: Work/School Release
== END 2023-01-25 23:57 | disposition home or self-care (01) ==
PROVIDERS: Emergency Provider Emergency Medicine; PCP Internal Medicine Geriatric Medicine
DX: J02.9 Acute pharyngitis, unspecified (principal); R59.1 Generalized enlarged lymph nodes; Z79.899 Other long term (current) drug therapy
CPT/HCPCS: 87651; 99282; 99283

== ENCOUNTER 2023-04-10 18:37 | Outpatient (REF) | payer SELFPAY | END 2023-04-10 18:38 | disposition home or self-care (01) | LOC: HO.HHCLNP 18:37 | PROVIDERS: Visit Provider Family Medicine | DX: Z11.52 Encounter for screening for COVID-19 (principal); J06.9 Acute upper respiratory infection, unspecified | CPT/HCPCS: 0241U; 87070 ==

== ENCOUNTER 2023-05-27 11:46 | Outpatient (REF) | payer SELFPAY | END 2023-05-27 11:47 | disposition home or self-care (01) | LOC: HO.LNP 11:46 | PROVIDERS: Visit Provider Nurse Practitioner Family | DX: R10.84 Generalized abdominal pain (principal) | CPT/HCPCS: 87338 ==

== ENCOUNTER 2023-07-15 19:21 | Outpatient (REF) | payer BC, SELFPAY ==
[2023-07-16 10:06] LABS: H Pylori Breath Test Negative (Negative)
== END 2023-07-15 19:22 | disposition home or self-care (01) ==
LOC: HO.HHCLNP 19:21
PROVIDERS: Visit Provider Internal Medicine Geriatric Medicine
DX: A04.8 Other specified bacterial intestinal infections (principal)
CPT/HCPCS: 83013

== ENCOUNTER 2023-07-21 15:27 | Outpatient (REF) | payer BC, SELFPAY ==
[2023-07-21 15:59] LABS: MANUAL DIFF FLAG NO
[2023-07-21 16:18] LABS: Basophils Absolute Auto 0.1 X10*3/uL (0.0-0.2); Basophils Percent Auto 0.5 % (0-2); Eosinophils Absolute Auto 0.1 X10*3/uL (0.0-0.4); Eosinophils Percent Auto 0.5 % (0-4); Hematocrit 43.1 % (42.0-52.0); Hemoglobin 14.5 g/dl (14.0-18.0); Imm Gran Abs Auto 0.03 X10*3/uL (0.00-0.03); Imm Gran Pct Auto 0.3 % (0.0-0.4); Lymphocytes Absolute Auto 2.3 X10*3/uL (1.2-4.9); Lymphocytes Percent Auto 24.2 % (20-40); Mean Corpuscular HGB Conc 33.6 g/dl (31.0-36.0); Mean Corpuscular Hemoglobin 29.3 pg (27.0-33.0); Mean Corpuscular Volume 87.1 fL (80.0-98.0); Mean Platelet Volume 10.3 fL (9.4-12.4); Monocytes Absolute Auto 0.8 X10*3/uL (0.1-1.2); Monocytes Percent Auto 8.8 % (2-11); Neutrophils Absolute Auto 6.2 x10*3/uL (2.0-8.3); Neutrophils Percent Auto 65.7 % (45-73); Platelet Count 229 X10*3/uL (160-400); Red Blood Count 4.95 X10*6/uL (4.60-5.80); Red Cell Distribution Width 13.1 % (11.0-16.0); White Blood Count 9.5 X10*3/uL (4.8-10.8)
[2023-07-21 17:07] LABS: Alanine Aminotransferase 11 U/L (0-40); Albumin Level 4.6 g/dL (3.5-5.0); Alkaline Phosphatase 91 U/L (39-117); Anion Gap 13 (12-20); Aspartate Amino Transferase 17 U/L (5-37); Bilirubin Total 0.3 mg/dL (0.0-1.0); Blood Urea Nitrogen 10 mg/dL (9-16); Calcium 9.5 mg/dL (8.4-10.2); Carbon Dioxide 29 mmol/L (22-29); Chloride 104 mmol/L (96-108); Estimated Glomerular Filt Rate > 60; Glucose Random 129 mg/dL (60-115); Potassium 3.5 mmol/L (3.3-5.1); Sodium 142 mmol/L (135-145); Total Protein 7.2 g/dL (6.5-8.0)
[2023-07-21 17:24] LABS: TSH reflex Free T4 0.45 uIU/mL (0.32-4.0)
[2023-07-22 08:28] LABS: HIV AB/AG Nonreactive (Nonreactive); HIV Num 1 0.04 S/CO (0.00-0.99)
== END 2023-07-21 15:28 | disposition home or self-care (01) ==
LOC: HO.HHCL 15:27
PROVIDERS: Visit Provider Internal Medicine Geriatric Medicine
DX: Z11.4 Encounter for screening for human immunodeficiency virus [HIV] (principal); R12 Heartburn; A04.8 Other specified bacterial intestinal infections; R63.4 Abnormal weight loss
CPT/HCPCS: 36415; 80053; 84443; 85025; 87389

== ENCOUNTER 2023-09-02 07:53 | Outpatient (REF) | payer BC, MEDICAID, SELFPAY ==
[2023-09-02 10:57] LABS: Appearance Urine Clear; Color Urine Yellow; Glucose Urine UA Negative (Negative); Leukocyte Esterase Urine Negative (Negative); Nitrite Urine Negative (Negative); Urine Blood Negative (Negative); Urine Ketones Negative (Negative); Urine Protein Negative (Neg-Trace)
[2023-09-02 11:03] LABS: Estimated Average Glucose 100 mg/dL; Hemoglobin A1c % 5.1 % (<6.0)
[2023-09-02 11:40] LABS: Amylase 80 U/L (28-100); C Reactive Protein < 0.10 mg/dL (< or = 0.50); Gamma Glutamyl Transpeptidase 20 U/L (11-51); Lipase 36 U/L (8-78)
[2023-09-02 11:50] LABS: HBS Num1 101.21 mIU/mL (0-7.99); HBc Num1 0.11 S/CO (0.00-0.79); HBsAGNum1 0.29 S/CO (0.00-0.99); HIV AB/AG Nonreactive (Nonreactive); HIV Num 1 0.05 S/CO (0.00-0.99); Hepatitis A Antibody IgM 0.54 Index (0-0.79); Hepatitis B Core Antibody Nonreactive (Nonreactive); Hepatitis B Surface Antigen Negative (Negative); ~HepC Num1 0.12 S/CO (0.00-0.79); ~Hepatitis A Antibody IgM Nonreactive (Nonreactive); ~Hepatitis B Surface Antibody REACTIVE (Nonreactive); ~Hepatitis C Antibody Nonreactive (Nonreactive)
[2023-09-02 11:57] LABS: TSH reflex Free T4 0.48 uIU/mL (0.32-4.0)
[2023-09-04 20:13] LABS: Transglutaminase Ab IgG <1.0 U/mL; Transglutaminase IgA <1.0 U/mL
== END 2023-09-02 07:54 | disposition home or self-care (01) ==
LOC: HO.LAB 07:53
PROVIDERS: PCP Internal Medicine Geriatric Medicine; Visit Provider Nurse Practitioner
DX: R63.4 Abnormal weight loss (principal); K21.9 Gastro-esophageal reflux disease without esophagitis; R10.33 Periumbilical pain
CPT/HCPCS: 36415; 81003; 82150; 82977; 83036; 83690; 84443; 86003; 86140; 86364; 86704; 86706; 86709; 86803; 87340; 87389; 99212

== ENCOUNTER 2023-09-02 07:53 | Outpatient (AMB) | payer MEDICAID, SELFPAY ==
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
[2023-09-02 07:56] VITALS: BP 116/71; PULSE 72; BMI 21.8
== END 2023-09-02 09:08 | disposition home or self-care (01) ==
PROVIDERS: PCP Internal Medicine Geriatric Medicine; Visit Provider Nurse Practitioner
DX: K21.9 Gastro-esophageal reflux disease without esophagitis (principal); R63.4 Abnormal weight loss; R10.33 Periumbilical pain
CPT/HCPCS: 99203

== ENCOUNTER 2023-09-16 15:34 | Outpatient (REF) | payer MEDICAID, SELFPAY ==
[2023-09-17 12:11] LABS: Adenovirus F 40/41 Not Detected (Not Detect.); Astrovirus Not Detected (Not Detect.); Campylobacter Not Detected (Not Detect.); Cryptosporidium Not Detected (Not Detect.); Cyclospora cayetanensis Not Detected (Not Detect.); E. coli EAEC Not Detected (Not Detect.); E. coli EPEC Not Detected (Not Detect.); E. coli ETEC Not Detected (Not Detect.); E. coli STEC Not Detected (Not Detect.); Entamoeba histolytica Not Detected (Not Detect.); Giardia lamblia Not Detected (Not Detect.); Norovirus GI/GII Not Detected (Not Detect.); Plesiomonas shigelloides Not Detected (Not Detect.); Rotavirus A Not Detected (Not Detect.); Salmonella Not Detected (Not Detect.); Sapovirus Not Detected (Not Detect.); Shigella sp./EIEC Not Detected (Not Detect.); Vibrio Not Detected (Not Detect.); Vibrio Cholerae Not Detected (Not Detect.); Yersinia enterocolitica Not Detected (Not Detect.)
[2023-09-23 20:44] LABS: Calprotectin, Fecal 89 mcg/g
== END 2023-09-16 15:35 | disposition home or self-care (01) ==
LOC: HO.LNP 15:34
PROVIDERS: Visit Provider Nurse Practitioner
DX: R63.4 Abnormal weight loss (principal); R10.33 Periumbilical pain
CPT/HCPCS: 83993; 87507

== ENCOUNTER 2023-11-06 15:16 | Outpatient (AMB) | payer MEDICAID, SELFPAY ==
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
[2023-11-06 15:22] VITALS: BMI 21.1
== END 2023-11-06 15:50 | disposition home or self-care (01) ==
PROVIDERS: PCP Internal Medicine Geriatric Medicine; Visit Provider Nurse Practitioner
DX: R10.33 Periumbilical pain (principal); R63.4 Abnormal weight loss; K21.9 Gastro-esophageal reflux disease without esophagitis; A04.8 Other specified bacterial intestinal infections
CPT/HCPCS: 99213

== ENCOUNTER → 2023-11-06 15:16 | Outpatient (BNVA) | payer MEDICAID, SELFPAY | PROVIDERS: PCP Internal Medicine Geriatric Medicine; Visit Provider Nurse Practitioner | DX: K21.9 Gastro-esophageal reflux disease without esophagitis (principal); R10.33 Periumbilical pain; R63.4 Abnormal weight loss; A04.8 Other specified bacterial intestinal infections | CPT/HCPCS: 99212 ==

== ENCOUNTER 2024-02-23 07:13 | Day surgery (SDC) | payer SELFPAY ==
[2024-02-19 07:46] VITALS: BMI 21.1
--- NOTE | 2024-02-19 14:33 | HO.ANESPROP2 ---
HPI - Anesthesia Eval Consult details Narrative: 38yo M for Upper Endoscopy and Colonoscopy [facility] Active Problems Active Problems: All Active Problems Periumbilical abdominal pain (Acute) Weight loss (Acute) GERD (gastroesophageal reflux disease) (Acute) Chronic low back pain (Acute) Anxiety and depression (Acute) H. pylori infection (Acute) Surgical History Surgical History History of appendectomy Social History Social History Advance Directives: No Advance Directives Information Provided: Yes Meds Allergies Allergy/AdvReac Type Severity Reaction Status Date / Time acetaminophen [From TYLENOL] Allergy Intermediate LIVER Verified 11/06/23 15:28 SWELLING Home Medications ?Medication ?Instructions ?Recorded ?Confirmed ?Last Taken ?Type multivitamin (One Daily 1 tab PO DAILY 09/02/23 Unknown History Multivitamin tablet) Exam Height,Weight and Vital Signs: Height 5 ft 7 in Weight 61 kg Assessment and Plan Assessment Anesthesia Assessment: Chart Reviewed
[2024-02-23 08:25] VITALS: BP 106/62; PULSE 48; RESP 18; TEMP 36.4; O2SAT 97
[2024-02-23] MEDS: Lactated Ringers 1,000 ML 100 ML IVCONT (08:39)
--- NOTE | 2024-02-23 08:43 | MHC.SHP ---
Pre-Procedural Eval Section A - 24 Hr Update-Section A only Date of Service: 02/23/24 Section B - Complete if H&P > 30 days Chief Complaint: Abdominal pain, unintentional weight loss Present Medications: see Short Stay Collaborative assessment Allergies: Allergies Allergy/AdvReac Type Severity Reaction Status Date / Time acetaminophen [From TYLENOL] Allergy Intermediate LIVER Verified 11/06/23 15:28 SWELLING Review of Systems Review of Systems Comment: 10 point ROS negative Exam Exam Comment: Gen appear: No acute distress HEENT: no icterus Chest: No overt resp distress Abd: soft, nontender, nondistended Psych: Stable affect, answering questions appropriately Neuro: A/Ox3 noted to move all extremities spontaneously Ext: no peripheral edema Plan Diagnosis/Plan: Unchanged I have reviewed the history and physical and performed a pertinent physical examination on my patient. No changes have occurred unless specified. Time Spent With Patient Time: Total time managing care of this patient today ____ minutes.
--- NOTE | 2024-02-23 10:00 | HO.ANESPROP2 ---
REPLACED BY [facility] Active Problems Active Problems: All Active Problems Periumbilical abdominal pain (Acute) Weight loss (Acute) GERD (gastroesophageal reflux disease) (Acute) Chronic low back pain (Acute) Anxiety and depression (Acute) H. pylori infection (Acute) Past Medical History Functional capacity: independent ambulation Family History Family history of problems with anesthesia: No Surgical History Surgical History History of appendectomy History of Problems with Anesthesia: No Social History Social History Advance Directives: No Advance Directives Information Provided: Yes Meds Allergies Allergy/AdvReac Type Severity Reaction Status Date / Time acetaminophen [From TYLENOL] Allergy Intermediate LIVER Verified 11/06/23 15:28 SWELLING Active Medications: Current Medications Lactated Ringer's (Lr) 1,000 mls @ 100 mls/hr IVCONT .Q10H MARICRUZ Last Admin: 02/23/24 08:39 Dose: 100 mls/hr Home Medications ?Medication ?Instructions ?Recorded ?Confirmed ?Last Taken ?Type multivitamin (One Daily 1 tab PO DAILY 09/02/23 Unknown History Multivitamin tablet) Exam Height,Weight and Vital Signs: Height 5 ft 7 in Weight 61 kg Last Vital Signs Temp 97.6 F 02/23/24 08:25 Pulse 48 L 02/23/24 08:25 Resp 18 02/23/24 08:25 BP 106/62 02/23/24 08:25 Pulse Ox 97 02/23/24 08:25 O2 Del Method Room Air 02/23/24 08:25 Airway Mallampati Class: II TM Dist: >3cm Neck ROM: Full Heart: slow HR Lungs: CTA Assessment and Plan Assessment Anesthesia Assessment: Anesthesia Plan Discussed, Smoking Cess. Discussed and Chart Reviewed Final Anesthetic Review Family History of Problems with Anesthesia: No History of Problems with Anesthesia: No NPO: Yes ASA Class: II Final Preanesthetic Review: Meds/Allgs Chart Reviewed, Consent Obtained/Reviewed and Anes Risks/Benef Reviewed Patient Risk: Low Procedure Risk: Low Anesthetic Plan Anesthetic Plan: MAC: Disposition: Standard PACU
[2024-02-23 10:17] VITALS: BP 108/64; PULSE 63; RESP 16; TEMP 36.3; O2SAT 98
--- NOTE | 2024-02-23 10:17 | P.OPN-COLO_ITS ---
Colonoscopy Operative Note Operative Note Date of Service: 02/23/24 Narrative: Procedure: Upper endoscopy and colonoscopy Indication: Abd pain, unintentional weight loss Endoscopist: Lisa Burt MD Anesthesia Provider: Dr Lakshmi Martin Anesthesia type: MAC Instrument: [id number] and [id number] EGD Procedure:?? The procedure, indications, preparation and potential complications were reviewed with the patient, who indicated understanding and gave written informed consent to proceed. The endoscope was introduced through the mouth, and advanced to the 2nd part of the duodenum. The mucosa was carefully examined on slow withdrawal of the endoscope. The patient tolerated the procedure well. There were no immediate complications.? EGD Findings:? * Esophagus:? Small < 5 mm erosions noted at GE junction. The Z-line was at 42 cm. Cold forceps biopsies were taken from middle esophagus and GE junction. * Stomach:? Normal gastric mucosa. Retroflexion was performed in the cardia. Random cold forceps biopsies were taken from the stomach. * Duodenum:? Erythema and edema in the duodenal bulb. Cold forceps biopsies were taken from the duodenal bulb and 2nd portion of the duodenum to rule out celiac sprue. Colonoscopy Procedure:? The patient was then turned for the colonoscopy. A digital rectal exam was performed which was normal.? A distal attachment cap was affixed to the tip of the scope and the colonoscope was then inserted through the anus and advanced through the colon and advanced to the cecum at 75 cm and terminal ileum.? Appendiceal orifice and ileocecal valve were identified. Mucosa was carefully examined under high definition white light as the instrument was slowly withdrawn in a retrograde panoramic fashion. Retroflexion was performed in ascending colon and rectum. The procedure was not difficult. The quality of the prep was BBPS: 3+2+3 = adequate Withdrawal time 7 minutes Limitations: No limitations Findings: Mucosa: Normal colon and terminal ileum mucosa. Cold forceps biopsies were taken from RIGHT and LEFT side of the colon to r/o microscopic colitis. Protruding lesions: * Small internal hemorrhoids without stigmata of recent bleeding. Impression: 1. Grade A esophagitis (biopsy) 2. Normal stomach (biopsy) 3. Mild duodenitis (biopsy) 4. Normal colon and terminal ileum mucosa (biopsy) 5. Internal hemorrhoids Recommendations:?? * Follow-up path results * Avoid NSAIDs * H Pylori treatment if biopsies + * Colonoscopy for CRC screening in 10 years.
[2024-02-23 10:43] VITALS: BP 123/72; PULSE 71; RESP 18; TEMP 36.3; O2SAT 98
--- NOTE | 2024-02-23 11:09 | HO.POSTANES ---
Post Anesthesia Evaluation Post Anesthesia Evaluation Date of Service: 02/23/24 Vital Signs: Vital Signs Temp Pulse Resp BP Pulse Ox O2 Del Method 02/23/24 10:43 97.3 F 71 18 123/72 98 Room Air 02/23/24 10:17 97.3 F 63 16 108/64 98 Room Air 02/23/24 08:25 97.6 F 48 L 18 106/62 97 Room Air Anesthesia: Monitored Mental Status: Awake Pain Control: Satisfactory Nausea/Vomiting: None Hydration: Adequate Anesthesia-Related Issues: No Anes. Related Issues
== END 2024-02-23 11:50 | disposition home or self-care (01) ==
PROVIDERS: PCP Internal Medicine Geriatric Medicine; Visit Provider Internal Medicine
PROC: (CPT 43239; principal; 2024-02-23 09:10)
DX: K29.80 Duodenitis without bleeding (principal); K21.00 Gastro-esophageal reflux disease with esophagitis, without bleeding; K22.10 Ulcer of esophagus without bleeding; K64.8 Other hemorrhoids; R10.33 Periumbilical pain; R63.4 Abnormal weight loss; Z87.19 Personal history of other diseases of the digestive system; Z79.899 Other long term (current) drug therapy
CPT/HCPCS: 43239; 45380; 88305; 88313; 88342; J1596; J2003; J2704

== ENCOUNTER → 2024-02-23 07:13 | Outpatient (BNV) | payer SELFPAY | PROVIDERS: PCP Internal Medicine Geriatric Medicine; Visit Provider Internal Medicine | DX: R10.33 Periumbilical pain (principal); R63.4 Abnormal weight loss; K21.00 Gastro-esophageal reflux disease with esophagitis, without bleeding; K29.80 Duodenitis without bleeding; K64.8 Other hemorrhoids | CPT/HCPCS: 43239; 45380 ==

== ENCOUNTER 2024-04-02 11:21 | Emergency (ER) | payer SELFPAY ==
--- NOTE | ~2024-04-02 | XR_ITS ---
CLINICAL HISTORY: chest tightness, cough 2 view chest x-ray Comparison: CR/SR - CHEST 2 VIEWS - 04/20/19 09:13 EST Findings: No consolidation or effusion. Normal size heart. No acute fracture. IMPRESSION: 1. No acute findings. This document has been electronically signed by: Riri Charlton MD on 04/02/2024 13:23:20
--- NOTE | 2024-04-02 11:28 | ECG_ITS ---
Test Reason : chest pain Blood Pressure : / mmHG Vent. Rate : 065 BPM Atrial Rate : 065 BPM P-R Int : 164 ms QRS Dur : 100 ms QT Int : 384 ms P-R-T Axes : 076 085 067 degrees QTc Int : 399 ms Normal sinus rhythm Incomplete right bundle branch block Borderline ECG When compared with ECG of 20-APR-2019 07:50, No significant change was found Referred By: Eufemia Schmidt Electronically Signed By:Demond Quinones
[2024-04-02 11:42] VITALS: BP 105/58; PULSE 67; RESP 18; TEMP 36.6; O2SAT 98; BMI 22.3
--- NOTE | 2024-04-02 11:42 | ED_ITS ---
HPI - General Adult General Chief complaint: Upper Respiratory Symptoms Stated complaint: muscle aches, cough w/ CP Time Seen by Provider: 04/02/24 13:29 Source: patient Mode of arrival: ambulatory Limitations: no limitations History of Present Illness ED Provider: kal schmidt pa-c HPI narrative: 38-year-old male with past medical history significant for GERD, anxiety, and depression presents to the ED today for evaluation of myalgias, dry cough, and chest tightness x 2 weeks. Admits chest tightness is primarily on coughing. Denies SOB. His is at home with similar symptoms. He denies fever, headache, sore throat, sputum production, palpitations, chest pain, hemoptysis, calf pain, N/V. Denies recent travel or long car rides. No hx of VTE. No hx asthma. Related Data Home Medications ?Medication ?Instructions ?Recorded ?Confirmed multivitamin (One Daily 1 tab PO DAILY 09/02/23 Multivitamin tablet) Previous Rx's ?Medication ?Instructions ?Recorded bisacodyl 5 mg tablet,delayed 10 mg (2 x 5 mg) PO BEDTIME 2 days 09/02/23 release (Dulcolax (bisacodyl)) #4 tabs pantoprazole 40 mg tablet,delayed 40 mg PO BID 30 days #60 tabs 09/02/23 release (Protonix) benzonatate 100 mg capsule 100 mg PO BID PRN cough #20 caps 04/02/24 Allergies Allergy/AdvReac Type Severity Reaction Status Date / Time acetaminophen [From TYLENOL] Allergy Intermediate LIVER Verified 04/02/24 11:43 SWELLING Review of Systems 2 Review of Systems: Constitutional: No fever, chills, fatigue, night sweats, weight changes ENT/Mouth: No ear pain, hearing loss, nasal congestion, sinus pain, rhinorrhea, sore throat Eyes: No eye pain, swelling, redness, vision changes, discharge Cardio: No chest pain, palpitations, FITZGERALD, orthopnea, peripheral edema Pulm: No SOB, cough, sputum, wheezing, dyspnea, hemoptysis, +cough GI: No nausea, vomiting, hematemesis, abdominal pain, diarrhea, constipation, hematochezia, melena : No irregular bleeding, dysuria, frequency, urgency, hesitancy, hematuria, flank pain, urinary flow changes, urinary incontinence or retention MSK: No back pain, neck pain, joint pain, +myalgias Skin: No lesions, rashes Neuro: No weakness, numbness, paresthesias, LOC, dizziness Psych: No anxiety/panic, depression, SI/HI, AH/VH All other systems reviewed and are negative. ON LICENSE OF [facility] Past Medical History Attestation statement: The following information was validated with the patient. Source: old records reviewed and nursing notes reviewed Surgical History History of appendectomy Social History Social History Advance Directives: No Advance Directives Information Provided: Yes Do you have a plan to hurt others: No Plan Physical Exam ED Vital Signs: Vital Signs - 24 hr 04/02/24 11:42 04/02/24 13:38 Temperature 97.8 F 97.8 F Pulse Rate 67 97 Respiratory Rate 18 18 Blood Pressure 105/58 L 105/58 L Pulse Oximetry 98 98 Oxygen Delivery Method Room Air Room Air BMI result Body Mass Index 22.3 Vital signs stable General: Well appearing, in no acute distress. Skin: Warm, dry, intact. No rashes or lesions. Head: Normocephalic, atraumatic. EENT: Hearing is intact b/l. Conjunctiva clear. PERRLA. Moist mucous membranes.? Neck: Supple without LAD. FROM. Trachea midline.? Cardiac: Chest wall symmetric. RRR. No JVD. Lungs: Normal respiratory effort without accessory muscle use. CTA bilaterally. No rales, rhonchi, or wheezes.? Abdomen: Soft, non-tender, non-distended. No rebound tenderness or guarding. Positive BS x4. Back: No midline spinous or paraspinal tenderness. No step off deformity. Ext: Upper and lower extremities atraumatic, without tenderness, deformity, swelling or erythema. Full ROM throughout. Neuro: AOx3. Normal speech. Strength 5/5 intact throughout. Sensation intact to light touch. NV intact distally. Reflexes 2+ bilaterally. Ambulating with steady gait. Psych: Appropriate mood and affect. Responds appropriately to questions. Course Course Course Narrative: This is a Rapid Medical Examination (RME) performed by Mikel Schmidt PA-C in triage. Full HPI, ROS, assessment and treatment plan per primary provider in the Main ED. 38 yo male hx GERD, anxiety, depression here for eval of myalgias, dry cough, and chest tightness x 2 weeks. at home with similar symptoms. denies fever, sore throat. Plan: labs, ekg, cxr, viral swabs Reevaluation(s) Reevaluation #1: 1335 -- cbc without leukocytosis or left shift. no anemia, h&h stable. Chemistry without acute electrolyte abnormality requiring intervention. No ASHISH. Troponin undetectable. EKG showing normal sinus rhythm with a rate of 65 beats per minute, incomplete right bundle-branch block, present on prior EKGs. No acute ischemic changes or ST elevations. No concern for ACS. He was tested negative for COVID, flu, RSV. His chest x-ray does not demonstrate pneumonia or effusion. > I discussed all results with patient. Likely viral upper respiratory infection. Will send home with Maria Esther Alcantar for cough. requesting work note - provided. Patient has remained stable throughout ED visit today. Discussed worrisome signs and symptoms and when to return to the ED. All questions answered at this time. Patient is agreeable with disposition and stable for discharge. Medical Decision Making Medical Decision Making [facility] Narrative: 38-year-old male with past medical history significant for GERD, anxiety, and depression presents to the ED today for evaluation of myalgias, dry cough, and chest tightness x 2 weeks. Vital signs stable. not tachycardic or hypoxic. he is nontoxic appearing and in NAD. no respiratory distress. lungs are clear, no wheezing. Differential diagnosis includes viral syndrome, pneumonia, bronchitis, ACS, arrhythmia. Unlikely pleural v pericardial effusion, [employer], retropharyngeal abscess, epiglottitis, peritonsillar abscess. PERC 0 - PE unlikely. Plan for viral swabs, labs, ekg, cxr. Differential Diagnosis Differential Diagnoses: The differential diagnosis associated with the presentation includes As above Admission/Observation Not indicated Lab Data [facility] Lab Attestation statement: I reviewed the patient's lab results. As above 04/02/24 11:59 04/02/24 11:59 Labs: Lab Results 04/02/24 Range/Units 11:59 WBC 6.2 (4.8-10.8) X10*3/uL RBC 4.82 (4.60-5.80) X10*6/uL Hgb 14.4 (14.0-18.0) g/dl Hct 42.6 (42.0-52.0) % MCV 88.4 (80.0-98.0) fL MCH 29.9 (27.0-33.0) pg MCHC 33.8 (31.0-36.0) g/dl RDW 12.1 (11.0-16.0) % Plt Count 235 (160-400) X10*3/uL MPV 10.2 (9.4-12.4) fL Immature Gran % (Auto) 0.3 (0.0-0.4) % Neut % (Auto) 54.8 (45-73) % Lymph % (Auto) 34.5 (20-40) % [place] % (Auto) 8.1 (2-11) % Eos % (Auto) 1.3 (0-4) % Baso % (Auto) 1.0 (0-2) % Lymph # (Auto) 2.1 (1.2-4.9) X10*3/uL [place] # (Auto) 0.5 (0.1-1.2) X10*3/uL Eos # (Auto) 0.1 (0.0-0.4) X10*3/uL Baso # (Auto) 0.1 (0.0-0.2) X10*3/uL Abs Immat Gran (auto) 0.02 (0.00-0.03) X10*3/uL Absolute Neuts (auto) 3.4 (2.0-8.3) x10*3/uL Absolute Nucleated RBC 0.000 (0.0-0.012) X10*3/uL Nucleated RBC % (auto) 0.0 (0.0-0.2) /100WBC Sodium 141 (135-145) mmol/L Potassium 4.4 D (3.3-5.1) mmol/L Chloride 107 (96-108) mmol/L Carbon Dioxide 30 H (22-29) mmol/L Anion Gap 8 L (12-20) BUN 12 (9-16) mg/dL Creatinine 1.10 (0.5-1.4) mg/dL Estim Creat Clear Calc 84.9 Estimated GFR > 60 Random Glucose 68 (60-115) mg/dL Calcium 9.5 (8.4-10.2) mg/dL Magnesium 1.9 (1.6-2.6) mg/dL Total Bilirubin 0.7 (0.0-1.0) mg/dL AST 24 (5-37) U/L ALT 17 (0-40) U/L Alkaline Phosphatase 82 (39-117) U/L Troponin I High Sens < 2.7 (<3.5-35.0) ng/L Total Protein 6.9 (6.5-8.0) g/dL Albumin 4.4 (3.5-5.0) g/dL Influenza Type A (PCR) NEGATIVE (Negative) Influenza Type B (PCR) NEGATIVE (Negative) RSV RNA Qual (PCR) NEGATIVE (Negative) SARS-CoV-2 RNA (RT-PCR) NEGATIVE (Negative) Independent Interpretation I performed an independent interpretation of an: EKG and Plain X-Ray Interpretation: chest xray without infiltrate or consolidation EKG showing normal sinus rhythm with a rate of 65 beats per minute, incomplete right bundle-branch block, present on prior EKGs. No acute ischemic changes or ST elevations. Radiology Impression Discussion of test interpretation with radiology: I have reviewed the radiologist's reading. Radiologist Impression: CLINICAL HISTORY: chest tightness, cough 2 view chest x-ray Comparison: CR/SR - CHEST 2 VIEWS - 04/20/19 09:13 EST Findings: No consolidation or effusion. Normal size heart. No acute fracture. IMPRESSION: 1. No acute findings. This document has been electronically signed by: Riri Charlton MD on 04/02/2024 13:23:20 Independent Historian Clinical information obtained from an independent historian. History obtained from or confirmed by: Spouse () External Record Review External record reviewed: Inpatient record Prescription Management I considered prescription management with: Other (Tessalon Perles) Social Determinants Patient?s care significantly limited by Social Determinants of Health including: Other Social Determinant of Health Critical Care Time Critical Care Time Critical Care Time: No Discharge Plan Discharge Clinical Impression: Viral syndrome Patient Disposition: Home, Self-Care Instructions: Viral Syndrome (ED) Additional Instructions: You tested negative for flu, COVID, RSV. Your chest x-ray is normal. Your blood work is reassuring. You likely have a viral upper respiratory infection that does not require antibiotic treatment. Tessalon Perles have been sent to your pharmacy for you to take as needed for cough. Alter ibuprofen and Tylenol for fevers and body aches. Follow-up with your PCP If symptoms persist or worsen please return to the emergency department. The case of an emergency call 911. Prescriptions: New benzonatate 100 mg capsule 100 mg PO BID PRN (Reason: cough) Qty: 20 0RF No Action multivitamin [One Daily Multivitamin] Tablet 1 tab PO DAILY bisacodyl [Dulcolax (bisacodyl)] 5 mg tablet,delayed release (DR/EC) 10 mg PO BEDTIME 2 Days Qty: 4 0RF pantoprazole [Protonix] 40 mg tablet,delayed release (DR/EC) 40 mg PO BID 30 Days Qty: 60 3RF Referrals: Name,MD Romulo [Primary Care Provider] - Stand Alone Forms: Work/School Release Interventions: ED Discharge Assessment Last Done: 04/02/24 13:38 Discharge Date/Time: 04/02/24 13:45 Print Language: Gabonese
[2024-04-02 12:16] LABS: MANUAL DIFF FLAG NO
[2024-04-02 12:18] LABS: Basophils Absolute Auto 0.1 X10*3/uL (0.0-0.2); Eosinophils Absolute Auto 0.1 X10*3/uL (0.0-0.4); Eosinophils Percent Auto 1.3 % (0-4); Hematocrit 42.6 % (42.0-52.0); Hemoglobin 14.4 g/dl (14.0-18.0); Imm Gran Abs Auto 0.02 X10*3/uL (0.00-0.03); Imm Gran Pct Auto 0.3 % (0.0-0.4); Lymphocytes Absolute Auto 2.1 X10*3/uL (1.2-4.9); Lymphocytes Percent Auto 34.5 % (20-40); Mean Corpuscular HGB Conc 33.8 g/dl (31.0-36.0); Mean Corpuscular Hemoglobin 29.9 pg (27.0-33.0); Mean Corpuscular Volume 88.4 fL (80.0-98.0); Mean Platelet Volume 10.2 fL (9.4-12.4); Monocytes Absolute Auto 0.5 X10*3/uL (0.1-1.2); Monocytes Percent Auto 8.1 % (2-11); Neutrophils Absolute Auto 3.4 x10*3/uL (2.0-8.3); Neutrophils Percent Auto 54.8 % (45-73); Platelet Count 235 X10*3/uL (160-400); Red Blood Count 4.82 X10*6/uL (4.60-5.80); Red Cell Distribution Width 12.1 % (11.0-16.0); White Blood Count 6.2 X10*3/uL (4.8-10.8)
[2024-04-02 12:46] LABS: Alanine Aminotransferase 17 U/L (0-40); Albumin Level 4.4 g/dL (3.5-5.0); Alkaline Phosphatase 82 U/L (39-117); Anion Gap 8 (12-20); Aspartate Amino Transferase 24 U/L (5-37); Bilirubin Total 0.7 mg/dL (0.0-1.0); Blood Urea Nitrogen 12 mg/dL (9-16); Calcium 9.5 mg/dL (8.4-10.2); Carbon Dioxide 30 mmol/L (22-29); Chloride 107 mmol/L (96-108); Creatinine Clr Calc Pharmacy 84.9; Estimated Glomerular Filt Rate > 60; Glucose Random 68 mg/dL (60-115); Magnesium 1.9 mg/dL (1.6-2.6); Potassium 4.4 mmol/L (3.3-5.1); Sodium 141 mmol/L (135-145); Total Protein 6.9 g/dL (6.5-8.0)
[2024-04-02 12:54] LABS: Troponin-I High Sensitivity < 2.7 ng/L (<3.5-35.0)
[2024-04-02 12:58] LABS: Influenza A PCR NEGATIVE (Negative); Influenza B PCR NEGATIVE (Negative); Resp Syncy Virus RNA Qual PCR NEGATIVE (Negative); SARS COV2 PCR INHOUSE NEGATIVE (Negative)
[2024-04-02 13:38] VITALS: BP 105/58; PULSE 97; RESP 18; TEMP 36.6; O2SAT 98
== END 2024-04-02 13:45 | disposition home or self-care (01) ==
LOC: HO.ED 13:40
PROVIDERS: Physician Assistant Medical; Emergency Provider Emergency Medicine; PCP Internal Medicine Geriatric Medicine
DX: B34.9 Viral infection, unspecified (principal); R05.9 Cough, unspecified; Z03.818 Encounter for observation for suspected exposure to other biological agents ruled out
CPT/HCPCS: 0241U; 71046; 80053; 83735; 84484; 85025; 93005; 99283

== ENCOUNTER → 2024-04-02 11:28 | Outpatient (BNV) | payer SELFPAY | PROVIDERS: Emergency Provider Emergency Medicine; PCP Internal Medicine Geriatric Medicine; Visit Provider Internal Medicine Cardiovascular Disease | DX: R07.9 Chest pain, unspecified (principal) | CPT/HCPCS: 93010 ==

== ENCOUNTER → 2024-04-02 11:43 | Outpatient (BNV) | payer SELFPAY | PROVIDERS: Emergency Provider Emergency Medicine; PCP Internal Medicine Geriatric Medicine; Visit Provider Radiology Diagnostic Radiology | DX: R05.9 Cough, unspecified (principal); R07.9 Chest pain, unspecified | CPT/HCPCS: 71046 ==

== ENCOUNTER 2024-04-12 15:21 | Outpatient (REF) | payer SELFPAY ==
--- NOTE | ~2024-04-12 | XR_ITS ---
EXAMINATION: XR LUMBOSACRAL SPINE CLINICAL INFORMATION: chornic low back pain COMPARISON: August 06, 2020 TECHNIQUE: Three views of the lumbosacral spine. FINDINGS: No acute cortical disruption or malalignment. Decreased intervertebral disc height at L5-S1. No lytic or blastic lesions. XR/XR lumbar spine 2-3V IMPRESSION: Spondylosis L5-S1 without acute fracture or listhesis. Electronically signed by: Morgan Mason MD 04/12/2024 03:55 PM [facility]
== END 2024-04-12 15:22 | disposition home or self-care (01) ==
LOC: HO.HHCX 15:21
PROVIDERS: Visit Provider Family Medicine
DX: M54.50 Low back pain, unspecified (principal); G89.29 Other chronic pain
CPT/HCPCS: 72100

== ENCOUNTER → 2024-04-12 15:23 | Outpatient (BNV) | payer OTHER, SELFPAY | PROVIDERS: Visit Provider Radiology Diagnostic Radiology | DX: M47.817 Spondylosis without myelopathy or radiculopathy, lumbosacral region (principal) | CPT/HCPCS: 72100 ==

== ENCOUNTER 2024-12-05 21:03 | Emergency (ER) | payer MEDICAID, SELFPAY ==
[2024-12-05 21:10] VITALS: BP 103/75; PULSE 62; RESP 18; TEMP 36.4; O2SAT 97; BMI 21.7
--- NOTE | 2024-12-06 00:37 | ED_ITS ---
HPI - Skin/Abscess/Foreign Bdy General Chief complaint: Skin/Abscess/Foreign Body Stated complaint: lump inside mouth Source: patient Mode of arrival: ambulatory Limitations: no limitations History of Present Illness ED Provider: Dr. Herminia Javier HPI narrative: Patient comes to the emergency room complaining of a small bumped at started on the right side of his inner lip. Patient denies any trauma. Patient states it popped about 3 weeks ago and now it started growing again. Patient denies any pain fever or chills. Related Data Home Medications ?Medication ?Instructions ?Recorded ?Confirmed multivitamin (One Daily 1 tab PO DAILY 09/02/23 Multivitamin tablet) Previous Rx's ?Medication ?Instructions ?Recorded bisacodyl 5 mg tablet,delayed 10 mg (2 x 5 mg) PO BEDT MARTHA 2 days 09/02/23 release (Dulcolax (bisacodyl)) #4 tabs pantoprazole 40 mg tablet,delayed 40 mg PO BID 30 days #60 tabs 09/02/23 release (Protonix) benzonatate 100 mg capsule 100 mg PO BID PRN cough #20 caps 04/02/24 Allergies Allergy/AdvReac Type Severity Reaction Status Date / Time acetaminophen (From TYLENOL) Allergy Intermediate LIVER Verified 12/05/24 21:13 SWELLING Review of Systems Review of Systems: Constitutional : No Weight loss, No Fever, No Chills, No Night Sweats, No Fatigue, No Malaise ENT/Mouth : Complaining of a bump in his inner limp on the right side which popped a few weeks ago and now it is growing again. No Hearing loss, No Ear Pain, No Nasal Congestion, No Sinus Pain, No Hoarseness, No sore throat, No Rhinorrhea, No Swallowing Difficulty Eyes: No Eye Pain, No Swelling, No Redness, No Foreign Body, No Discharge, No Vision Changes Cardiovascular : No Chest Pain, No SOB, No Dyspnea on Exertion, No Orthopnea, No Edema, No Palpitations Respiratory : No Cough, No Sputum, No Wheezing, No Smoke Exposure, No Dyspnea Gastrointestinal : No Nausea, No Vomiting, No Diarrhea, No Constipation, No abdominal Pain, No Hematochezia, No Melena Genitourinary : no irregular bleeding, No Dysuria, No Urinary Frequency, No Hematuria, No Urinary Incontinence, No Urgency, No Flank Pain, No Urinary Flow Changes, No Hesitancy Musculoskeletal : No joint pain, No Myalgias, No Joint Swelling Skin : No Skin Lesions, No rash Neuro : No Weakness, No Numbness, No Paresthesias, No Loss of Consciousness, No Dizziness, No Headache Psych : No Anxiety/Panic, No Depression, No SI/HI/AH/VH, No Social Issues, Heme/Lymph: No Bruising, No Bleeding,No Lymphadenopathy Endocrine : No Polyuria, No Polydipsia, No Temperature Intolerance [facility] Past Medical History Surgical History History of appendectomy Social History Social History Advance Directives: No Advance Directives Information Provided: Yes Physical Exam Exam: Exam: Appearance: Alert. Oriented X3. No acute distress. Eyes: Pupils equal, round and reactive to light. ENT: Pharynx normal. Patient has a small bump in his inner lips, probably have cm by 0.5 cm, movable Neck: Normal inspection. Neck supple. No lymph nodes noted. No crepitus CVS: Normal heart rate and rhythm. Pulses normal. Normal S1 and S2 Respiratory: No respiratory distress. Breath sounds normal. No Wheezing. No rales Abdomen: Soft and nontender. No rigidity. No distention. Skin: Skin warm and dry. Normal skin color. Normal skin turgor. Extremities: No lower extremity edema. No Lacerations. No Rash Neuro: Oriented X 3. No motor deficit. No sensory deficit. Moving all extremities. No slurred speech. CN 2 through 12 grossly intact Psych: calm, cooperative, normal affect Vital Signs: Vital Signs: Last Vital Signs Temp 97.6 F 12/05/24 21:10 Pulse 62 12/05/24 21:10 Resp 18 12/05/24 21:10 BP 103/75 12/05/24 21:10 Pulse Ox 97 12/05/24 21:10 O2 Del Method Room Air 12/05/24 21:10 BMI result Body Mass Index 21.7 Medical Decision Making Medical Decision Making [facility] Narrative: Patient denies any pain. Patient states that it popped 3 weeks ago. I discussed with the patient that it is possible that he has a mucinous cyst. At this time, there is no need to drain this is, it is fairly small. Initially when patient came in, he stated that he had no pain, it was just there. After a mentioned to the patient that at this time it was not indicated to pop it, patient states that he can not eat. Unclear why he would not be able to eat. The cyst is very small, does not cause any obstruction. I discussed with the patient that eventually when this is gets bigger, he may need drainage. At this time not indicated. 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 If you have any worsening or new symptoms, please return to the emergency room or call 911 Prescriptions: No Action benzonatate 100 mg capsule 100 mg PO BID PRN (Reason: cough) Qty: 20 0RF multivitamin [One Daily Multivitamin] Tablet 1 tab PO DAILY bisacodyl [Dulcolax (bisacodyl)] 5 mg tablet,delayed release (DR/EC) 10 mg PO BEDTIME 2 Days Qty: 4 0RF pantoprazole [Protonix] 40 mg tablet,delayed release (DR/EC) 40 mg PO BID 30 Days Qty: 60 3RF Print Language: Ukrainian
[2024-12-06 00:55] VITALS: BP 103/75; PULSE 62; RESP 18; TEMP 36.4; O2SAT 97
== END 2024-12-06 00:55 | disposition home or self-care (01) ==
PROVIDERS: Emergency Provider Emergency Medicine
DX: K13.0 Diseases of lips (principal)
CPT/HCPCS: 99282

== ENCOUNTER 2024-12-11 09:36 | Emergency (ER) | payer MEDICAID, SELFPAY ==
--- NOTE | ~2024-12-11 | CT_ITS ---
CLINICAL HISTORY: flank pain CT abdomen and pelvis without contrast Comparison: CT/SR - CT ABDOMEN PELVIS WITHOUT IV CONTRAST - 09/01/22 05:09 EDT Findings: The heart is not enlarged. The lung bases are clear. A 2 mm calcification projects within the urinary bladder near the right vesicoureteral junction. No other evidence of urolithiasis. Mild right hydroureter and pelviectasis. The gallbladder and other abdominal solid organs are unremarkable. No bowel obstruction. Appendix not definitely visualized. The urinary bladder is incompletely distended. The prostate is not enlarged. Mild discogenic degenerative disease which is most conspicuous L5-S1. 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 IMPRESSION: A 2 mm stone within the urinary bladder near the right vesicoureteral junction results in mild right hydroureter and pelviectasis. This document has been electronically signed by: Jesus Alberto Hill DO on 12/11/2024 13:01:42
[2024-12-11 09:39] VITALS: BP 127/76; PULSE 73; RESP 16; TEMP 37; O2SAT 98; BMI 21.9
--- NOTE | 2024-12-11 09:45 | ED_ITS ---
HPI - General Adult General Chief complaint: Back Pain/Injury Stated complaint: Pain on right side lower back Time Seen by Provider: 12/11/24 09:45 Source: patient Mode of arrival: ambulatory Limitations: no limitations History of Present Illness ED Provider: Xiomara Lopez PA-C HPI narrative: Patient is a 39 year old assigned male at with a history of GERD, anxiety, depression, appendectomy and chronic low back pain presenting to the emergency department with right flank pain radiating to his right groin. Patient states that the pain started 3 days ago but got worse this morning. He reports taking Motrin at 0400 this morning with no relief. Patient denies any fever, chills, nausea, vomiting, chest pain, difficulty breathing, abdominal pain, blood in his urine, blood in his stool, dysuria, urinary frequency, urinary hesitancy, urinary or fecal incontinence, or any other symptoms. Onset (ago): day(s) (3 days) Radiation: flank (right flank) Related Data Home Medications ?Medication ?Instructions ?Recorded ?Confirmed multivitamin (One Daily 1 tab PO DAILY 09/02/23 Multivitamin tablet) Previous Rx's ?Medication ?Instructions ?Recorded bisacodyl 5 mg tablet,delayed 10 mg (2 x 5 mg) PO BEDT MARTHA 2 days 09/02/23 release (Dulcolax (bisacodyl)) #4 tabs pantoprazole 40 mg tablet,delayed 40 mg PO BID 30 days #60 tabs 09/02/23 release (Protonix) benzonatate 100 mg capsule 100 mg PO BID PRN cough #20 caps 04/02/24 naproxen 500 mg tablet 500 mg PO BID 7 days #14 tab s 12/11/24 prednisone 10 mg tablet 10 mg PO DAILY 4 days #4 tab s 12/11/24 tamsulosin 0.4 mg capsule 0.4 mg PO DAILY #7 caps 10/28 Allergies Allergy/AdvReac Type Severity Reaction Status Date / Time acetaminophen (From TYLENOL) Allergy Intermediate LIVER Verified 12/11/24 09:41 SWELLING Review of Systems 2 Constitutional: Constitutional: Reports as per HPI Eyes: Eyes: Reports as per HPI ENT: Reports as per HPI Cardiovascular: Cardiovascular: Reports as per HPI Respiratory: Respiratory: Reports as per HPI Gastrointestinal: Gastrointestinal: Reports as per HPI Genitourinary: Genitourinary: Reports as per HPI Musculoskeletal: Musculoskeletal: Reports as per HPI Integumentary/Breasts: Skin/Breast: Reports as per HPI Neurologic: Reports as per HPI Psychiatric: Psychiatric: Reports as per HPI Endocrine: Endocrine: Reports as per HPI Hematologic/Lymphatic: Hematologic/Lymphatic: Reports as per HPI Allergic/Immunologic: Allergic/Immunologic: Reports as per HPI [facility] Past Medical History Attestation statement: The following information was validated with the patient. Source: old records reviewed and nursing notes reviewed Surgical History History of appendectomy Social History Social History Smoked in Last 30 Days: No Use of substances other than those prescribed or required for medical reasons: No Advance Directives: No Advance Directives Information Provided: Yes Do you have a plan to hurt others: No Plan Physical Exam ED Vital Signs: Vital Signs - 24 hr 12/11/24 09:39 12/11/24 13:36 Temperature 98.6 F 98.6 F Pulse Rate 73 73 Respiratory Rate 16 16 Blood Pressure 127/76 127/76 Pulse Oximetry 98 98 Oxygen Delivery Method Room Air Room Air BMI result Body Mass Index 21.9 Const General: cooperative, no acute distress, alert and awake Nutritional Appearance: well nourished Orientation/consciousness: patient oriented x3 HENMT Head: Yes normal to inspection and Yes atraumatic Ears: hearing grossly normal bilaterally and external ears normal General nose exam: Normal external nose present, no nasal discharge noted and no epistaxis Face and sinus: Yes normal facial exam, No abrasion and No laceration Mouth: Normal oral and palatal mucosa present, no drooling and no muffled voice Eyes General: appearance normal, both eyes and all related structures Periorbital: periorbital findings normal Eyelids: Yes eyelids normal Conjunctivae: conjunctivae normal Pupils: Equal, round and reactive pupils present EOM: EOMs intact bilaterally Neck Neck: Yes normal visual inspection and Yes full ROM Resp Effort & Inspection: normal respiratory effort and able to speak in complete sentences General: Yes CVA tenderness on the right Back/Spine/Pelvis Back: CVA tenderness Neuro General: patient oriented x3, moves all extremities and CN's II-XI intact bilaterally Cranial nerves: Yes Equal, round and reactive pupils present Cognition (Neuro): normal cognition Extrem General: Yes normal to inspection, Yes full ROM and Yes capillary refill normal Psych Appearance: grossly normal Mental Status: mental status grossly normal Affect: normal affect Attitude: cooperative Thought process: Normal thought process present Thought content: Normal thought content present Insight: Good insight present (Psych) Medications Administered Discontinued Medications Generic Name Dose Route Start Last Admin Trade Name Annamaria PRN Reason Stop Dose Admin Hydromorphone HCl 0.5 mg 12/11/24 10:01 12/11/24 10:10 Hydromorphone Hcl 0.5 Mg/0.5 Ml Syringe IVPUSH 12/11/24 10:02 0.5 mg ONCE ONE Administration Protocol Sodium Chloride 1,000 mls @ 999 mls/hr 12/11/24 10:15 12/11/24 11:40 Ns IV 12/11/24 11:15 Infused .Q1H1M MARICRUZ Infusion Ketorolac Tromethamine 15 mg 12/11/24 10:01 12/11/24 10:09 Ketorolac Tromethamine 15 Mg/Ml Vial IVPUSH 12/11/24 10:02 15 mg ONCE ONE Administration Methylprednisolone Sodium Succinate 60 mg 12/11/24 10:02 12/11/24 10:09 Methylprednisolone Sod Succ 125 Mg/2 Ml Vial IVPUSH 12/11/24 10:03 60 mg ONCE ONE Administration Ondansetron HCl 4 mg 12/11/24 10:01 12/11/24 10:09 Ondansetron Hcl 4 Mg/2 Ml Vial IVPUSH 12/11/24 10:02 4 mg ONCE ONE Administration Medical Decision Making Medical Decision Making [facility] Narrative: Patient is a 39 year old assigned male at with a history of GERD, anxiety, depression, appendectomy and chronic low back pain presenting to the emergency department with right flank pain radiating to his right groin. Patient's physical exam was as noted in the physical exam portion of this note. Patient's blood work was unremarkable. Patient's urine showed RBC / blood but was otherwise unremarkable. Patient's CT abd/pelvis showed a 2mm stone within the urinary bladder near the right vesicoureteral junction with mild right hydroureter and pelviectasis. I explained my physical exam findings as well as all test results to the patient. I answered all questions asked by the patient. Patient received IV toradol, solu-medrol, fluids, Zofran, and dilaudid which, upon re-evaluation, he stated it helped his symptoms significantly. I stressed the importance of the patient taking his medication as directed (either prescribed or as the over the counter packaging recommends). I stressed the importance of the patient following up with his primary care provider and a urologist. I stressed the importance of the patient returning to the emergency department immediately if his symptoms were to worsen or if he were to develop any dizziness, shortness of breath, difficulty breathing, chest pain, blurry vision, loss of vision, nausea, vomiting, abdominal pain, fever, chills, back pain, or any other complaints. Patient verbalized agreement and understanding with this treatment plan and discharge. Differential Diagnosis Differential Diagnoses: The differential diagnosis associated with the presentation includes Flank pain Kidney stone UTI Admission/Observation Consideration of admission/observation: Escalation of care including admission/observation considered Patient would have been admitted to the hospital had his work up had any findings where hospital admission was appropriate and his clinical presentation warranted hospital admission. Lab Data [facility] Lab Attestation statement: I reviewed the patient's lab results. My interpretation of these results are in the MDM Rationale portion of this note. 12/11/24 10:04 12/11/24 10:04 Labs: Lab Results 12/11/24 12/11/24 Range/Units 10:03 10:04 WBC 8.2 (4.8-10.8) X10*3/uL RBC 4.96 (4.60-5.80) X10*6/uL Hgb 15.0 (14.0-18.0) g/dl Hct 42.7 (42.0-52.0) % MCV 86.1 (80.0-98.0) fL MCH 30.2 (27.0-33.0) pg MCHC 35.1 (31.0-36.0) g/dl RDW 12.3 (11.0-16.0) % Plt Count 218 (160-400) X10*3/uL MPV 9.9 (9.4-12.4) fL Immature Gran % (Auto) 0.1 (0.0-0.4) % Neut % (Auto) 58.7 (45-73) % Lymph % (Auto) 31.0 (20-40) % [place] % (Auto) 8.3 (2-11) % Eos % (Auto) 1.0 (0-4) % Baso % (Auto) 0.9 (0-2) % Lymph # (Auto) 2.6 (1.2-4.9) X10*3/uL [place] # (Auto) 0.7 (0.1-1.2) X10*3/uL Eos # (Auto) 0.1 (0.0-0.4) X10*3/uL Baso # (Auto) 0.1 (0.0-0.2) X10*3/uL Abs Immat Gran (auto) 0.01 (0.00-0.03) X10*3/uL Absolute Neuts (auto) 4.8 (2.0-8.3) x10*3/uL Absolute Nucleated RBC 0.000 (0.0-0.012) X10*3/uL Nucleated RBC % (auto) 0.0 (0.0-0.2) /100WBC Sodium 141 (135-145) mmol/L Potassium 4.1 (3.3-5.1) mmol/L Chloride 105 (96-108) mmol/L Carbon Dioxide 28 (22-29) mmol/L Anion Gap 12 (12-20) BUN 17 H (9-16) mg/dL Creatinine 1.11 (0.5-1.4) mg/dL Estim Creat Clear Calc 81.8 Estimated GFR > 60 Random Glucose 96 (60-115) mg/dL Calcium 9.6 (8.4-10.2) mg/dL Magnesium 2.0 (1.6-2.6) mg/dL Total Bilirubin 0.6 (0.0-1.0) mg/dL AST 27 (5-37) U/L ALT 17 (0-40) U/L Alkaline Phosphatase 91 (39-117) U/L Total Protein 7.4 (6.5-8.0) g/dL Albumin 4.9 (3.5-5.0) g/dL Urine Color Yellow Urine Appearance Clear Urine pH 6.0 (5.0-9.0) Ur Specific [place] 1.020 (1.005-1.025) Urine Protein Negative (Neg-Trace) mg/dL Urine Glucose (UA) Negative (Negative) mg/dL Urine Ketones Negative (Negative) mg/dL Urine Blood Small (1+) H (Negative) Urine Nitrite Negative (Negative) Ur Leukocyte Esterase Negative (Negative) Urine RBC 6-10 H (0-2) /HPF Urine WBC 0-5 (0-5) /HPF Ur Squamous Epith Cells 0-2 (0-2) /HPF Urine Bacteria None Seen (None Seen) Hyaline Casts 0-2 (0-2) /LPF Independent Interpretation I performed an independent interpretation of an: CT Scan Interpretation: My interpretation is in agreement with the radiologist's impression of this imaging study. L Report Number: [id number]: Total DLP = 313.00 mGy-cm Reason for Exam: flank pain CLINICAL HISTORY: flank pain CT abdomen and pelvis without contrast Comparison: CT/SR - CT ABDOMEN PELVIS WITHOUT IV CONTRAST - 09/01/22 05:09 EDT Findings: The heart is not enlarged. The lung bases are clear. A 2 mm calcification projects within the urinary bladder near the right vesicoureteral junction. No other evidence of urolithiasis. Mild right hydroureter and pelviectasis. The gallbladder and other abdominal solid organs are unremarkable. No bowel obstruction. Appendix not definitely visualized. The urinary bladder is incompletely distended. The prostate is not enlarged. Mild discogenic degenerative disease which is most conspicuous L5-S1. 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 IMPRESSION: A 2 mm stone within the urinary bladder near the right vesicoureteral junction results in mild right hydroureter and pelviectasis. This document has been electronically signed by: Jesus Alberto Hill DO on 12/11/2024 13:01:42 Dictated By: Jesus Alberto Hill MD Signed By: Electronically signed by Jesus Alberot Hill MD 12/11/24 1302 Radiology Impression Discussion of test interpretation with radiology: I have reviewed the radiologist's reading. Critical Care Time Critical Care Time Critical Care Time: Yes Total Critical Care Time: 46 Attestation: I spent 46 minutes of Critical Care Time with this patient. This does not include time spent on separately reported billable procedures. Discharge Plan Discharge Clinical Impression: Kidney stone Patient Disposition: Home, Self-Care Instructions: Kidney Stones (ED) Additional Instructions: Your work up today showed evidence of a kidney stone that is about to drop into your bladder and pass. Los an?lisis que le hicieron hoy mostraron evidencia de un c?lculo renal que est? a punto de descender a bella vejiga y expulsarlo. Take your medication as prescribed. Igo bella medicamento seg?n lo prescrito. Follow up with the Urology team. Seguimiento con el equipo de Urolog?a. IF you are prescribed home medications and/or you are taking over the counter medications at home- it is very important you continue to do so as prescribed / directed unless told otherwise. SI le recetan medicamentos y/o est? tomando medicamentos de venta jonathan, es muy importante que contin?e haci?ndolo seg?n lo recetado/indicado a menos que le indiquen lo contrario. Follow up with your primary care provider. Return to the emergency department immediately if your symptoms worsen or if you develop any dizziness, shortness of breath, difficulty breathing, chest pain, blurry vision, loss of vision, nausea, vomiting, abdominal pain, fever, chills, back pain, or any other complaints. Marcos?seguimiento?con bella m?dico de atenci?n primaria. Acuda inmediatamente al servicio de urgencias si gloria s?ntomas empeoran o si presenta falta de aliento, dificultad para respirar, dolor tor?cico, mareos, aturdimiento, dolor de espalda, dolor abdominal, fiebre, escalofr?os o cualquier otro s?ntoma. Please see the information below about our Patient Portal. If you are not yet enrolled in the [facility] Patient Portal, you will receive an enrollment email invitation following your visit to any [facility] setting. You may also self-enroll in the Patient Portal by visiting our website: [email or web address] The following information is required to access the Patient Portal: - Your [facility] Medical Record Number - Your personal home email address (must match what is in your electronic medical record, Registration staff can assist with this) - Name - Date of Capabilities of the Patient Portal: - Message some providers - View upcoming appointments - Access your health summary, medical history, and visit history - View current conditions and allergies - View procedure and lab results - View your medications, including guidelines, side effects, and precautions - Complete pre-appointment questionnaires requested by your provider - Ready summary reports of your office visits and procedures To access the Patient Portal Mobile Ezio, follow these directions: - Search [email or web address] in the Ezio Store or [email or web address] Store - Download the Ezio - Search for [facility] - Enter your login/password Portal del paciente Si usted no esta inscrito en el portal de pacientes de [facility], recibira narendra invitacion de inscripcion despues de bella visita al [facility] o al [facility] via correo electronico. Tambien puede inscribirse voluntariamente en el portal de pacientes visitando nuestra pagina web: [email or web address] La siguiente informacion sera requerida para acceder al portal: - Bella rosa de historia medica de [facility] - Bella direccion de correo electronico personal - Nombre - Fecha de nacimiento Capacidades: Las siguientes capacidades estan disponibles en el portal de pacientes: - Enviar mensajes a algunos doctores - Verificar proximas citas - Acceso a bella historial de yarelis, registro medico e historial de visitas - Sara las condiciones actuales y alergias sara procedimientos y resultados del laboratorio - Sara gloria medicamentos, incluyendo las pautas - Efectos secundarios y precauciones - Completar o llenar formularios / cuestionarios de - Citas solicitadas por bella doctor - Leer los resumenes de reportes medicos de gloria visitas y procedimientos Sonido acceder a la aplicacion movil: - [employer] [facility] en la Ezio Store o Google Play Store - Descargue la aplicacion - [facility] - Ingrese bella nombre de usuario / Contrasena Prescriptions: New prednisone 10 mg tablet 10 mg PO DAILY 4 Days Qty: 4 0RF tamsulosin 0.4 mg capsule 0.4 mg PO DAILY Qty: 7 0RF naproxen 500 mg tablet 500 mg PO BID 7 Days Qty: 14 0RF No Action benzonatate 100 mg capsule 100 mg PO BID PRN (Reason: cough) Qty: 20 0RF multivitamin [One Daily Multivitamin] Tablet 1 tab PO DAILY bisacodyl [Dulcolax (bisacodyl)] 5 mg tablet,delayed release (DR/EC) 10 mg PO BEDTIME 2 Days Qty: 4 0RF pantoprazole [Protonix] 40 mg tablet,delayed release (DR/EC) 40 mg PO BID 30 Days Qty: 60 3RF Referrals: [facility]rology Services [Provider Group, Urology] Referral Note: [facility] will be contacting you within 2 business days. During this call, they will notify you of when your follow up appointment will be scheduled. If you do NOT receive a call from them within the next 2 business days, please call their office at the provided number. Name,MD Romulo [Primary Care Provider, Internal Medicine] Stand Alone Forms: Work/School Release Interventions: ED Discharge Assessment Last Done: 12/11/24 13:36 Discharge Date/Time: 12/11/24 13:36 Print Language: Paraguayan
[2024-12-11 10:09] LABS: MANUAL DIFF FLAG NO
[2024-12-11 10:13] LABS: Hematocrit 42.7 % (42.0-52.0); Hemoglobin 15.0 g/dl (14.0-18.0); Imm Gran Abs Auto 0.01 X10*3/uL (0.00-0.03); Imm Gran Pct Auto 0.1 % (0.0-0.4); Lymphocytes Absolute Auto 2.6 X10*3/uL (1.2-4.9); Mean Corpuscular HGB Conc 35.1 g/dl (31.0-36.0); Mean Corpuscular Hemoglobin 30.2 pg (27.0-33.0); Mean Corpuscular Volume 86.1 fL (80.0-98.0); NRBC Abs Auto 0.000 X10*3/uL (0.0-0.012); NRBC Pct Auto 0.0 /100WBC (0.0-0.2); Platelet Count 218 X10*3/uL (160-400); Red Blood Count 4.96 X10*6/uL (4.60-5.80); White Blood Count 8.2 X10*3/uL (4.8-10.8)
[2024-12-11 10:16] LABS: Appearance Urine Clear; Glucose Urine UA Negative (Negative); PH 6.0 (5.0-9.0); Specific Gravity - Urine 1.020 (1.005-1.025); UMIC TRIGGER UACC YES
--- OUTSIDE RECORDS SUMMARY | 2024-12-11 10:26 | XMS_ITS | Clinical Summary ---
Author Organization [employer] Address [address] [place] [address] Care Team Providers Care Corporate Development Analyst Name Role Phone Name, Romulo GRIGGS Primary Care Provider [phone] Allergies Active Allergy Reactions Criticality Noted Date Comments Acetaminophen High 09/01/2022 Other reaction(s): LIVER SWELLING Medications Multiple Vitamin (One-Daily Multi-Vitamin) tablet TAKE 1 TABLET BY MOUTH ONCE DAILY 90 tablet 4 Active omeprazole OTC (PriLOSEC OTC) 20 MG EC tablet Take 1 tab po BID for 14 days. 28 tablet 3 4 Active cyclobenzaprine (Flexeril) 10 MG tabletIndicatio ns:Chronic midline low back pain without sciatica One tab po at bedtime prn pain of muscles, do not drive with medicaion 10 tablet 5 Active albuterol 108 (90 Base) MCG/ACT inhaler Inhale 2 puffs every 4 (four) hours if needed for wheezing or shortness of breath. 18 g 2 5 07/28/19 26 Active fluticasone (Flonase Allergy Relief) 50 MCG/ACT nasal spray Administer 1 spray into each nostril Once per day. Shake gently. Before first use, prime pump. After use, clean tip and replace cap. 16 g 2 5 07/28/19 26 Active ibuprofen 400 MG tablet Take 1 tablet (400 mg) by mouth every 6 (six) hours if needed for moderate pain or fever for up to 30 doses. 30 tablet 5 Active Active Problems Problem Noted Date Diagnosed Date Helicobacter pylori gastritis 05/29/2023 Assessment & Plan (05/29/2023 10:12 AM EST): I advise patient to avoid NSAIDs, spicy and acid food, I advise to eat at the same time every day, I advise to elevate the head of the bed and take medications as prescribe H pylori treatment (triple) prescribed today F/u with PCP and GI Chronic low back pain 09/18/2022 Assessment & Plan (04/12/2024 3:17 PM EST): Likely acute on chronic musculoskeletal pain. Non-focal, normal motor exam without neurological deficits. No back pain red-flags: bowel/bladder incontinence, IVDU, urinary retention, saddle anesthesia, and significant motor deficits. -Ordered update XR's. -Recommend ibuprofen and muscle relaxer prn. Physical therapy referral offered. -Acupuncture clinic offered. -Referred to Chiropractics. -Lifting precaution sand stretching reviewed. -ER precaution discussed. Mixed anxiety and depressive disorder 09/18/2022 Anxiety 06/15/2018 Resolved Problems Problem Noted Date Diagnosed Date Resolved Date Acute otitis media 01/28/2023 4 Sore throat 01/28/2023 04/28/2023 Gastroenteritis 09/18/2022 04/28/2023 Immunizations Immunization Administration Dates Next Due Pfizer Covid-19 Vaccine 12+ 12/13/2020, 1 Td (adult), 5 Lf tetanus tox oid, preservative free, adsorbed 09/20/2013 Tdap 04/28/2023 Social History Tobacco Use Types Packs/Day Years Used Date Smoking Tobacco: Former Cigarettes Passive Smoke Exposure: Current Smokeless Tobacco: Never Tobacco Cessation:Counseling Given: Not Answered Alcohol Use Standard Drinks/Week Comments Not Currently 0 (1 standard drink = 0.6 oz pur e alcohol) occassionally Depression Answer Date Recorded Patient Health Questionnaire-9 Score 0 09/26/2022 Housing Stability Answer Date Recorded What is your housing situation today? I have courtneyrosa mckeon 01/26/[address] you li ve. Do you have problems with any of the following? None of the above 01/26/2023 Food Insecurity Answer Date Recorded Within the past 12 months, y ou worried that your food would run out before you got money to buy more: Never True 01/26/2023 Within the past 12 months,th e food you bought just didn't last and you didn't have enough money to get more: Never True Transportation Answer Date Recorded In the past 12 months, has l ack of transportation kept you from medical appts, meetings, work or from getting things needed for daily living? No 01/26/2023 Utilities Answer Date Recorded In the past 12 months, has t he electric, gas, oil or water company threatened to shut off services in your home? No 01/26/2023 Depression Answer Date Recorded Patient Health Questionnaire-2 Score 0 09/26/2022 Sex and Gender Information Value Date Recorded Sex Assigned at Male 02/03/2022 10:35 AM EDT Legal Sex Male 4:25 PM EDT Gender Identity Male 02/03/2022 10:35 AM EDT Sexual Orientation Straight 02/03/2022 10 :35 AM EDT Last Filed Vital Signs Vital Sign Reading Time Taken Comments Blood Pressure 116/82 07/27/2024 2:54 PM EDT Pulse 59 07/27/2024 2:54 PM EDT Temperature 36.6 C (97.8 F) 07/27/2024 2:54 PM EDT Respiratory Rate 17 07/27/2024 2:54 PM EDT Oxygen Saturation 99% 07/27/2024 2:54 PM EDT Inhaled Oxygen Concentration - - Weight 61 kg (134 lb 6.4 oz) 07/27/2024 2:54 PM EDT Height 170.2 cm (5' 7 ) 07/15/2023 10:22 AM EDT Body Mass Index 21.05 07/15/2023 10:22 AM EDT Plan of Treatment Health Maintenance Due Date Last Done Comments Disability Screening 1987 Alcohol/Substance Use Screening 1999 Family Planning (PISQ) 08/17/2002 HPV Vaccines (1 - Male 3-dos e series) 08/17/2002 Hepatitis B Vaccines (1 of 3 - 19+ 3-dose series) 08/17/2006 Depression Screening 09/27/2023 09/26/2022, 09/26/2022 COVID-19 Vaccine (2023-2 5 season) 2023 05/09/2021, 12/13/2020, 11/23/2020 SDOH Screening 07/07/2024 07/08/2023 Influenza Vaccine (#1) 2024 Tobacco Screening 07/27/2025 07/27/2024 Lipid Panel 08/06/2025 08/06/2020 DTaP/Tdap/Td Vaccines (2 - T d or Tdap) 04/28/2033 04/28/2023, 09/20/2013 Zoster Vaccines (1 of 2) 08/17/2037 RSV Patients and Patients Aged 60 years or older (1 - 1-dose 75+ series) 08/17/2062 HIV Screening Completed 09/02/2023, 07/21/2023 Hepatitis C Screening Completed 09/02/2023 , 02/03/2022 HIB Vaccines Aged Out No longer eligi ble based on patient's age to complete this topic Hepatitis A Vaccines Aged Out No long er eligible based on patient's age to complete this topic IPV Vaccines Aged Out No longer eligi ble based on patient's age to complete this topic Meningococcal B Vaccine Aged Out No l onger eligible based on patient's age to complete this topic Meningococcal Vaccine Aged Out No jones tigist eligible based on patient's age to complete this topic Pneumococcal Vaccine: Pediatrics (0 to 5 Years) and At-Risk Patients (6 to 49) Years Aged Out No longer eligible b ased on patient's age to complete this topic RSV under 20 months Aged Out No longe r eligible based on patient's age to complete this topic Rotavirus Vaccines Aged Out No longer eligible based on patient's age to complete this topic Procedures Procedure Name Priority Date/Time Associated Diagnosis Comments HEPATITIS PANEL, GENERAL Routine 09/02/2023 9:47 AM EDT HIV 1/2 ANTIGEN/ANTIBODY, FOURTH GENERATION W/RFL Routine 09/02/2023 9:47 AM EDT LIPID PANEL, STANDARD Routine 08/06/2020 1:45 PM EDT from Last 3 Months or Most Recently Relevant to Health Maintenance Results * Hepatitis Panel, General (09/02/2023 9:47 AM EDT) Hepatitis A IgM Nonreactive Nonreactive [facility] Comment:IgM antibodies to BARRERA V not detected; does not exclude earlyacute or recovered HAV infection. ~Hepatitis B Surface Antibody REACTIVE Nonreactive [facility] Comment:REACTIVE: > 11.99 mI U/mL Hepatitis B Core Antibody Nonreactive Nonreactive [facility] Hepatitis C Antibody Nonreactive Nonreactive [facility] Comment:Antibodies to HCV no t detected; does not exclude early acuteHCV infection. Hepatitis B Surface Ag Negative Negative [facility] 09/02/2023 9:47 AM EDT 09/02/2023 9:47 AM EDT us Generic External Data Provider LAB BLOOD ORDERAB LES Final Result Performing Organization Address [facility] Co de Phone Number [facility] [address] [place] [address] [phone] * HIV-1/2 Antigen and Antibodies, Fourth Generation, with Reflexes (09/02/2023 9:47 AM EDT) HIV AB/AG Nonreactive Nonreactive [facility] Comment:HIV-1 p24 Ag and/or HIV-1/HIV-2 Ab not detected.A test result that is nonreactive does not exclude thepossibility of exposure to or infection with HIV-1 and/orHIV-2. Nonreactive results in this assay for individualswith prior exposure to HIV-1 and/or HIV-2 may be due toantigen and antibody levels that are below the limit ofdetection of this assay.[employer] HIV Ag/Ab Combo assay result andsupplemental assay results should be interpreted inconjunction with the patient's clinical presentation,history and other laboratory results. If the results areinconsistent with clinical evidence, additional testing issuggested to confirm the result. 09/02/2023 9:47 AM EDT 09/02/2023 9:47 AM EDT us Generic External Data Provider LAB BLOOD ORDERAB LES Final Result Performing Organization Address [facility]/ZIP Co de Phone Number [facility] [address] [place] [address] [phone] * (ABNORMAL) LIPID PANEL, STANDARD (08/06/2020 1:45 PM EDT) Chol/HDLC Ratio 3.9 <5.0 (calc) [facility] Cholesterol, Total 146 <200 mg/dL [facility] HDL Cholesterol 37(L) > OR = 40 mg/dL [facility] LDL Cholesterol 93 mg/dL (calc) [facility] Comment: Reference range: <100 Desirable range <100 mg/dL for primary prevention; <70 mg/dL for patients with CHD or diabetic patients with > or = 2 CHD risk factors. LDL-C is now calculated using the Solomon calculation, which is a validated novel method providing better accuracy than the Friedewald equation in the estimation of LDL-C. Antelmo SS et al. DERIK. 2013;310(19): 5579-8006 (http://education.[employer].com/faq/APB373) Non-HDL Cholesterol 109 <130 mg/dL (calc) [facility] Comment: For patients with diabetes plus 1 major ASCVD risk factor, treating to a non-HDL-C goal of <100 mg/dL (LDL-C of <70 mg/dL) is considered a therapeutic option. Triglycerides 69 <150 mg/dL [facility] 08/06/2020 1:45 PM EDT us Romulo Name LAB BLOOD ORDERABLES Final Resul t [facility] [address] from Last 3 Months or Most Recently Relevant to Health Maintenance Insurance [facility] [place] [address] * Guarantor: Ti Yoon [facility] Account Type Relation to Patient Date of Phone Billing Address Personal/Family Self [address] [place] [address] * Guarantor: Olga Yoonmoi [facility] Account Type Relation to Patient Date of Phone Billing Address Personal/Family Self [address] [place] [address] * Guarantor: Olga Yoonmoi [facility] Account Type Relation to Patient Date of Phone Billing Address Personal/Family Self [address] [place] [address] Care Teams Corporate Development Analyst Relationship Specialty Start Date End Date Name, MD Romulo [address] [place] [phone] PCP - General Family Medicine 06/15/18
--- OUTSIDE RECORDS SUMMARY | 2024-12-11 10:26 | XMS_ITS | Encounter Summary ---
Author Organization [employer] Address [address] [place] [address] Care Team Providers Care Senior Bioinformatics Scientist Name Role Phone Name, Romulo GRIGGS Primary Care Provider [phone] Encounter Details Date Type Department Care Team ([facility] st Contact Info) Description 06/02/2023 Orders Only [facility] [address] [place], [place] [phone] Fariba Yu FNP [address] [place] [address] Social History Tobacco Use Types Packs/Day Years Used Date Smoking Tobacco: Former Cigarettes Passive Smoke Exposure: Current Smokeless Tobacco: Never Alcohol Use Standard Drinks/Week Comments Not Currently 0 (1 standard drink = 0.6 oz pur e alcohol) occassionally Depression Answer Date Recorded Patient Health Questionnaire-9 Score 0 09/26/2022 Housing Stability Answer Date Recorded What is your housing situation today? I have courtney mckeon 01/26/[address] you [...] Orientation Straight 02/03/2022 10 :35 AM EDT documented as of this encounter Miscellaneous Notes * Result Encounter Note - Ingris Freeman MD - 06/02/2023 1:01 PM EST Labs done by outside provider documented in this encounter Plan of Treatment Not on file documented as of this encounter Procedures Procedure Name Priority Date/Time Associated Diagnosis Comments HIGH SENSITIVITY TROPONIN I Routine 04/02/2024 11:59 AM EST SARS COV2/INFLUENZA A/B AND RSV RNA QL NAAT Routine 04/02/2024 11:59 AM EST CBC WITH AUTO DIFFERENTIAL Routine 04/02/2024 11:59 AM EST MAGNESIUM Routine 04/02/2024 11:59 AM EST COMPREHENSIVE METABOLIC PANEL Routine 04/02/2024 11:59 AM EST HEMATOXYLIN AND EOSIN STAIN Routine 02/23/2024 9:50 AM EST RAST ALLERGEN (NON ORDERABLE) Routine 09/02/2023 9:47 AM EDT TSH W/REFLEX TO FT4 Routine 09/02/2023 9 :47 AM EDT TISSUE TRANSGLUTAMINASE AB, IGG Routine 09/02/2023 9:47 AM EDT HEPATITIS PANEL, GENERAL Routine 024 9:47 AM EDT TISSUE TRANSGLUTAMINASE AB, IGA Routine 09/02/2023 9:47 AM EDT HIV 1/2 ANTIGEN/ANTIBODY, FOURTH GENERATION W/RFL Routine 09/02/2023 9:47 AM EDT C-REACTIVE PROTEIN Routine 09/02/2023 9: 47 AM EDT LIPASE Routine 09/02/2023 9:47 AM EDT HEMOGLOBIN A1C Routine 09/02/2023 9:47 AM EDT GGT Routine 09/02/2023 9:47 AM EDT AMYLASE Routine 09/02/2023 9:47 AM EDT URINALYSIS WITH REFLEX MICROSCOPIC Routine 09/02/2023 9:37 AM EDT documented in this encounter Results * SARS-CoV-2 RNA, Influenza A/B, and RSV RNA, Ql NAAT (04/02/2024 11:59 AM EST) Influenza A PCR NEGATIVE Negative [facility] Influenza B PCR NEGATIVE Negative [facility] Resp Syncy Virus RNA Qual PCR NEGATIVE Negative [facility] SARS COV2 PCR NEGATIVE Negative [facility] Comment:All test results mus t be correlated with clinical findings.Negative results do not preclude SARS-CoV2, influenza Avirus, influenza B virus and/or RSV infectionand should not be used as the sole basis for treatment orother patient management decisions. Negative results must becombined with clinical observations, patient history, andepidemiological information.This test has not been evaluated for monitoring treatment ofinfection.This test has been authorized by the FDA under an EmergencyUse Authorization (EUA) for use by authorized laboratories.Testing performed on the [employer] GeneXpert utilizingreal-time RT-PCR.All SARS CoV2 and positive influenza A/B results arereported to [facility]. 04/02/2024 11:5 9 AM EST 04/02/2024 12:14 PM EST Generic External Data Provider LAB MICROBIOLOGY - GENERAL ORDERABLES Final Result Performing Organization Address City/[facility]/ZIP Co de Phone Number [facility] [address] [place] [phone] * High Sensitivity Troponin I (04/02/2024 11:59 AM EST) Pathologist [facility] TROPONIN I HIGH SENSITIVITY <2.7 <3.5 - 35.0 ng/L [facility] Comment:The [place] high sens itivity Troponin-I results should beused in conjunction with other diagnostic information suchas ECG, clinical observations and information, and patientsymptoms to aid in the diagnosis of [place]. 04/02/2024 11:5 9 AM EST 04/02/2024 12:14 PM EST Generic External Data Provider LAB BLOOD ORDERAB LES Final Result Performing Organization Address [facility] Co de Phone Number [facility] [address] [place] [phone] * Magnesium (04/02/2024 11:59 AM EST) Pathologist [facility] Magnesium 1.9 1.6 - 2.6 mg/dL [facility] 04/02/2024 11:5 9 AM EST 04/02/2024 12:14 PM EST Generic External Data Provider LAB BLOOD ORDERAB LES Final Result Performing Organization Address [facility] Co de Phone Number [facility] [address] [place] [address] [phone] * (ABNORMAL) Comprehensive Metabolic Panel (04/02/2024 11:59 AM EST) Pathologist [facility] Sodium 141 135 - 145 mmol/L [facility] Potassium 4.4 3.3 - 5.1 mmol/L [facility] Chloride 107 96 - 108 mmol/L [facility] Carbon Dioxide 30(H) 22 - 29 mmol/L [facility] Anion Gap 8(L) 12 - 20 [facility] Urea Nitrogen (BUN) 12 9 - 16 mg/dL [facility] Creatinine, Serum 1.10 0.5 - 1.4 mg/dL [facility] Creatinine Clr Calc Pharmacy 84.9 [facility] Comment:eGFR (calculated fro m the MDRD study equation) and eCrCl(calculated from the Cockcroft-Gault equation) are based ondifferent parameters and may not yield comparable results.If eCrCl result is absurd, please check patient'sheight/weight. Estimated Glomerular Filt Rate >60 [facility] Comment:Chronic Kidney Disea se: Estimated GFR < 60 mL/min/1.80v8Kgvtsy Kidney Disease: Estimated GFR < 15 mL/min/1.73m2 Glucose 68 60 - 115 mg/dL [facility] Calcium 9.5 8.4 - 10.2 mg/dL [facility] Bilirubin, Total 0.7 0.0 - 1.0 mg/dL [facility] Aspartate Amino Transferase 24 5 - 37 U/L [facility] Alanine Aminotransferase 17 0 - 40 U/L [facility] Total Protein 6.9 6.5 - 8.0 g/dL [facility] Albumin Level 4.4 3.5 - 5.0 g/dL [facility] Alkaline Phosphatase 82 39 - 117 U/L [facility] 04/02/2024 11:5 9 AM EST 04/02/2024 12:14 PM EST us Generic External Data Provider LAB BLOOD ORDERAB LES Final Result [facility] [address] [place] [address] [phone] * CBC auto differential (04/02/2024 11:59 AM EST) White Blood Count 6.2 4.8 - 10.8 X10*3/uL [facility] Red Blood Count 4.82 4.60 - 5.80 X10*6/uL [facility] Hemoglobin 14.4 14.0 - 18.0 g/dl [facility] Hematocrit 42.6 42.0 - 52.0 % [facility] Mean Corpuscular Volume 88.4 80.0 - 98.0 fL [facility] Mean Corpuscular Hemoglobin 29.9 27.0 - 33.0 pg [facility] Mean Corpuscular HGB Conc 33.8 31.0 - 36.0 g/dl [facility] Red Cell Distribution Width 12.1 11.0 - 16.0 % [facility] Platelet Count 235 160 - 400 X10*3/uL [facility] Mean Platelet Volume 10.2 9.4 - 12.4 fL [facility] Neutrophils Percent Auto 54.8 45 - 73 % [facility] Imm Gran Pct Auto 0.3 0.0 - 0.4 % [facility] Lymphocytes Percent Auto 34.5 20 - 40 % [facility] Monocytes Percent Auto 8.1 2 - 11 % [facility] Eosinophils Percent Auto 1.3 0 - 4 % [facility] Basophils Percent Auto 1.0 0 - 2 % [facility] NRBC Pct Auto 0.0 0.0 - 0.2 /100WBC [facility] Neutrophils Absolute Auto 3.4 2.0 - 8.3 x10*3/uL [facility] Imm Gran Abs Auto 0.02 0.00 - 0.03 X10*3/uL [facility] Lymphocytes Absolute Auto 2.1 1.2 - 4.9 X10*3/uL [facility] Monocytes Absolute Auto 0.5 0.1 - 1.2 X10*3/uL [facility] Eosinophils Absolute Auto 0.1 0.0 - 0.4 X10*3/uL [facility] Basophils Absolute Auto 0.1 0.0 - 0.2 X10*3/uL [facility] NRBC Abs Auto 0.000 0.0 - 0.012 X10*3/uL [facility] 04/02/2024 11:5 9 AM EST 04/02/2024 12:14 PM EST us Generic External Data Provider LAB BLOOD ORDERAB LES Final Result [facility] [address] [place] [address] [phone] * Hematoxylin and Eosin Stain (02/23/2024 9:50 AM EST) 02/23/2024 9:50 AM EST 02/23/2024 11:35 AM EST Narrative [facility] - 02/25/2024 10:29 AM EST ----- ------- Name: Ti Yoon I Age/Sex: 38/M [facility] 1985 [id number]#: [id number] Attend Dr: Lisa Burt MD Re02/23/24 Status: [facility] Location: [facility] Disch: ----- ------- SPEC : [id number] RECD: 02/23/241837 STATUS: JEREMIE COOK NUM: [id number] YVONNE: 02/23/[address] [facility] [address]: Lisa Burt MD ENTERED: 02/23/24 SP TYPE: Surgical OTHR DR: Romulo Landrum MD ORDERED: HE Stain/18, Gross Micro L4/6, IHC, Special st. 2/3, H. pylori, AB/PAS/3 Diagnosis A. Duodenum, biopsy: Duodenal mucosa within normal limits. B. Stomach, biopsy: Antral-type and oxyntic mucosa with moderate chronic inactive inflammation; no Helicobacter organisms seen. C. GE junction, biopsy: - Cardiofundic-type mucosa with moderate chronic inactive inflammation; no intestinal metaplasia seen. - No squamous epithelium present. D. Esophagus, middle, biopsy: Squamous epithelium within normal limits; no inflammation seen. E. Colon, right, biopsy: Colonic mucosa within normal limits. F. Colon, left, biopsy: Colonic mucosa within normal limits. Clinical History Pre-Op Dx: Abdominal pain, unintentional weight loss Post-Op Dx: Duodenitis, grade A esophagitis, hemorrhoids Microscopic Description A-F. Microscopic sections examined. No metaplastic changes are seen, supported by AB/PAS stains (A, B and C); no Helicobacter organisms are seen, supported by H. pylori immunostain (B). Material Received A. Duodenum B. Gastric bx's C. GE junction bx's D. Middle esophagus F. Right colon bx's F. Left colon bx's CONTINUED ON NEXT PAGE ----- ------- Name: Ti Yoon I Age/Sex: 38/M : 1985 Unit#: [id number] Attend Dr: Lisa Burt MD Re02/23/24 Status: [facility] Location: [facility] Disch: ----- ------- SPEC : [id number] RECD: 02/23/24 STATUS: JEREMIE COOK NUM: [id number] YVONNE: 02/23/[address] [facility] [address]: Lisa Burt MD ENTERED: 02/23/24 TYPE: Surgical OTHR DR: Romulo Landrum MD ORDERED: HE Stain/18, Gross Micro L4/6, IHC, Special st. 2/3, H. pylori, AB/PAS/3 Gross Description Received in 6 parts. A. Received in formalin labeled duodenum are 3 fragments of pink-murray soft tissue measuring 0.2-0.4 cm in greatest dimension which are wrapped in lens paper and entirely submitted for microscopic examination, 3 pieces in cassette A. B. Received in formalin labeled gastric biopsies are 5 fragments of murray-white soft tissue measuring 0.3-0.4 cm in greatest dimension which are wrapped in lens paper and entirely submitted for microscopic examination, 5 pieces in cassette B. C. Received in formalin labeled GE junction biopsies are are 2 fragments of pink-murray soft tissue measuring 0.2 and 0.4 cm in greatest dimension which are wrapped in lens paper and entirely submitted for microscopic examination, 2 pieces in cassette C. D. Received in formalin labeled middle esophagus are 3 fragments of translucent, white soft tissue, each measuring 0.3 cm in greatest dimension which are wrapped in lens paper and entirely submitted for microscopic examination, 3 pieces in cassette D. E. Received in formalin labeled right colon biopsies are 3 fragments of murray-white soft tissue measuring 0.2-0.4 cm in greatest dimension which are wrapped in lens paper and entirely submitted for microscopic examination, 3 pieces in cassette E. F. Received in formalin labeled left colon biopsies are 4 fragments of translucent, white soft tissue measuring 0.2-0.3 cm in greatest dimension which are wrapped in lens paper and entirely submitted for microscopic examination, 4 pieces in cassette [facility] Special studies ordered and performed: Immunostain for H. pylori on B; AB/PAS stains on A, B and C Copies To: Romulo Landrum MD [address] [place] [address] [phone] Lisa Burt MD [facility] [address] [place] [address] [place] [address] [email or web address] CONTINUED ON NEXT PAGE ----- ------- Name: Ti Yoon I Age/Sex: 38/M : 1985 Unit#: [id number] Attend Dr: Lisa Burt MD Re02/23/24 Status: [facility] Location: [facility] Disch: ----- ------- SPEC : [id number] RECD: 02/23/24 STATUS: TAIWOCy COOK NUM: [id number] YVONNE: 02/23/[address] [facility] [address]: Lisa Burt MD ENTERED: 02/23/24 SP TYPE: Surgical OTHR DR: Romulo Landrum MD ORDERED: HE Stain/18, Gross Micro L4/6, IHC, Special st. 2/3, H. pylori, AB/PAS/3 ----- ------- Signed (signature on file) Hector Richard MD 02/25/24 1029 ----- ------- END OF REPORT Generic External Data Provider LAB BLOOD ORDERAB LES Final Result Performing Organization Address [facility]/ZIP Co de Phone Number [facility] [address] [place] [address] [phone] * Rast Allergen (09/02/2023 9:47 AM EDT) Pathologist [facility] Rast Allergen SEE NOTE [facility] Comment:SEE SCANNED RESULTS IN EMR 09/02/2023 9:47 AM EDT 09/02/2023 9:47 AM EDT Generic External Data Provider HISTORICAL/NON OR DERABLE LABS Final Result Performing Organization Address [facility] Co de Phone Number [facility] [address] [place] [address] [phone] * Tissue Transglutaminase Antibody, IgA (09/02/2023 9:47 AM EDT) Transglutaminase IgA <1.0 U/mL [facility] Comment:Value Interpretation ----- <15.0 Antibody not detected> or = 15.0 Antibody detectedTHIS TEST WAS PERFORMED AT:[facility] [place] [phone] IVORY MD 09/02/2023 9:47 AM EDT 09/02/2023 9:47 AM EDT Generic External Data Provider LAB BLOOD ORDERAB LES Final Result Performing Organization Address [facility] Co de Phone Number [facility] [address] [place] [address] [phone] * Tissue Transglutaminase (tTG) Antibody (IgG) (09/02/2023 9:47 AM EDT) Tissue Transglutaminase Antibody IgG <1.0 U/mL [facility] Comment:Value Interpretation ----- <15.0 Antibody not detected> or = 15.0 Antibody detectedTHIS TEST WAS PERFORMED AT:[facility] [place] [phone] IVORY MD 09/02/2023 9:47 AM EDT 09/02/2023 9:47 AM EDT Generic External Data Provider LAB BLOOD ORDERAB LES Final Result Performing Organization Address [facility] Co de Phone Number [facility] [address] [place] [phone] * HIV-1/2 Antigen and Antibodies, Fourth Generation, with Reflexes (09/02/2023 9:47 AM EDT) Pathologist [facility] HIV AB/AG Nonreactive Nonreactive [facility] Comment:HIV-1 p24 Ag and/or HIV-1/HIV-2 Ab not detected.A test result that is nonreactive does not exclude thepossibility of exposure to or infection with HIV-1 and/orHIV-2. Nonreactive results in this assay for individualswith prior exposure to HIV-1 and/or HIV-2 may be due toantigen and antibody levels that are below the limit ofdetection of this assay.The [employer] HIV Ag/Ab Combo assay result andsupplemental assay results should be interpreted inconjunction with the patient's clinical presentation,history and other laboratory results. If the results areinconsistent with clinical evidence, additional testing issuggested to confirm the result. 09/02/2023 9:47 AM EDT 09/02/2023 9:47 AM EDT us Generic External Data Provider LAB BLOOD ORDERAB LES Final Result Performing Organization Address City/[facility]/ZIP Co de Phone Number [facility] [address] [place] [phone] * Hepatitis Panel, General (09/02/2023 9:47 AM EDT) Hepatitis A IgM Nonreactive Nonreactive [facility] Comment:IgM antibodies to BARRERA V not detected; does not exclude earlyacute or recovered HAV infection. ~Hepatitis B Surface Antibody REACTIVE Nonreactive [facility] Comment:REACTIVE: > 11.99 mI U/mL Hepatitis B Core Antibody Nonreactive Nonreactive [facility] Hepatitis C Antibody Nonreactive Nonreactive [facility] Comment:Antibodies to HCV no t detected; does not exclude early acuteHCV infection. Hepatitis B Surface Ag Negative Negative [facility] 09/02/2023 9:47 AM EDT 09/02/2023 9:47 AM EDT us Generic External Data Provider LAB BLOOD ORDERAB LES Final Result Performing Organization Address [facility]/ZIP Co de Phone Number [facility] [address] [place] [phone] * TSH with Reflex to Free T4 (09/02/2023 9:47 AM EDT) TSH reflex Free T4 0.48 0.32 - 4.0 uIU/mL [facility] 09/02/2023 9:47 AM EDT 09/02/2023 9:47 AM EDT us Generic External Data Provider LAB BLOOD ORDERAB LES Final Result Performing Organization Address City/[facility]/ZIP Co de Phone Number [facility] [address] [place] [phone] * Lipase (09/02/2023 9:47 AM EDT) Lipase 36 8 - 78 U/L [facility] 09/02/2023 9:47 AM EDT 09/02/2023 9:47 AM EDT us Generic External Data Provider LAB BLOOD ORDERAB LES Final Result Performing Organization Address City/[facility]/ZIP Co de Phone Number [facility] [address] [place] [address] [phone] * Amylase (09/02/2023 9:47 AM EDT) Amylase 80 28 - 100 U/L [facility] 09/02/2023 9:47 AM EDT 09/02/2023 9:47 AM EDT us Generic External Data Provider LAB BLOOD ORDERAB LES Final Result Performing Organization Address [facility]/ZIP Co de Phone Number [facility] [address] [place] [address] [phone] * C-reactive Protein (09/02/2023 9:47 AM EDT) C Reactive Protein <0.10 < or = 0.50 mg/dL [facility] 09/02/2023 9:47 AM EDT 09/02/2023 9:47 AM EDT us Generic External Data Provider LAB BLOOD ORDERAB LES Final Result Performing Organization Address [facility] Co de Phone Number [facility] [address] [place] [address] [phone] * Gamma Glutamyl Transferase (GGT) (09/02/2023 9:47 AM EDT) Gamma Glutamyl Transpeptidase 20 11 - 51 U/L [facility] 09/02/2023 9:47 AM EDT 09/02/2023 9:47 AM EDT us Generic External Data Provider LAB BLOOD ORDERAB LES Final Result Performing Organization Address [facility] Co de Phone Number [facility] [address] [place] [address] [phone] * Hemoglobin A1c (09/02/2023 9:47 AM EDT) Hemoglobin A1c 5.1 <6.0 % [facility] Comment:Hemoglobin A1C Refer ence Range Adults: 4.8 - 6.0 % Non diabetic: < 6.0 % Goal: < 7.0 %Additional Action Suggested: > 8.0 %Note: Hemoglobin A1c results are invalid for patients with abnormal amounts of HbF. Blood transfusions may impact the HbA1c concentration in the patient sample. Estimated Average Glucose 100 mg/dL [facility] Comment:eAG = Estimated ave rage glucose which is %A1C expressed asaverage glucose, using the formula of the R5E-UxenugnTtezpzq Glucose study (ADAG), Diabetes Care, Vol.31,#8,Nov. 2007 09/02/2023 9:47 AM EDT 09/02/2023 9:47 AM EDT us Generic External Data Provider LAB BLOOD ORDERAB LES Final Result Performing Organization Address [facility] Co de Phone Number [facility] [address] [place] [address] [phone] * Urinalysis w/reflex microscopic (09/02/2023 9:37 AM EDT) Color Urine Yellow [facility] Appearance Urine Clear [facility] PH 7.0 5.0 - 9.0 [facility] Glucose Urine UA Negative Negative mg/dL [facility] Urine Blood Negative Negative [facility] Specific [place] - Urine 1.020 1.005 - 1.025 [facility] Urine Protein Negative Neg-Trace mg/dL [facility] Urine Ketones Negative Negative mg/dL [facility] Nitrite Urine Negative Negative [facility] Leukocyte Esterase Urine Negative Negative [facility] 09/02/2023 9:37 AM EDT 09/02/2023 10:33 AM EDT Narrative [facility] - 09/02/2023 10:59 AM EDT Urine, Clean Catch us Generic External Data Provider LAB URINE ORDERAB LES Final Result Performing Organization Address City/State/[facility] Co de Phone Number [facility] [address] [place] [phone] documented in this encounter Visit Diagnoses Not on filedocumented in this encounter Additional Health Concerns Assessment Noted Time PHQ-9 Depression Total Score: 0 09/27/19 23 10:28 AM EDT documented as of this encounter Care Teams Senior Bioinformatics Scientist Relationship Specialty Start Date End Date Name, MD [address] [place] [address] PCP - General Family Medicine 06/15/18 documented as of this encounter
[2024-12-11 10:28] LABS: Alanine Aminotransferase 17 U/L (0-40); Albumin Level 4.9 g/dL (3.5-5.0); Alkaline Phosphatase 91 U/L (39-117); Anion Gap 12 (12-20); Aspartate Amino Transferase 27 U/L (5-37); Blood Urea Nitrogen 17 mg/dL (9-16); Calcium 9.6 mg/dL (8.4-10.2); Carbon Dioxide 28 mmol/L (22-29); Chloride 105 mmol/L (96-108); Creatinine Clr Calc Pharmacy 81.8; Estimated Glomerular Filt Rate > 60; Magnesium 2.0 mg/dL (1.6-2.6); Potassium 4.1 mmol/L (3.3-5.1); Sodium 141 mmol/L (135-145); Total Protein 7.4 g/dL (6.5-8.0)
[2024-12-11 13:36] VITALS: BP 127/76; PULSE 73; RESP 16; TEMP 37; O2SAT 98
== END 2024-12-11 13:36 | disposition home or self-care (01) ==
PROVIDERS: Physician Assistant Medical; Emergency Provider Emergency Medicine; PCP Internal Medicine Geriatric Medicine
DX: N20.0 Calculus of kidney (principal)
CPT/HCPCS: 36415; 74176; 80053; 81001; 83735; 85025; 96361; 96374; 96375; 99284; J1171; J1885; J2405; J2919

== ENCOUNTER → 2024-12-11 10:01 | Outpatient (BNV) | payer MEDICAID, SELFPAY | PROVIDERS: Emergency Provider Emergency Medicine; PCP Internal Medicine Geriatric Medicine; Visit Provider Radiology Diagnostic Radiology | DX: N21.0 Calculus in bladder (principal) | CPT/HCPCS: 74176 ==